=== PATIENT | male | born 1940 | race Caucasian/White ===

== ENCOUNTER 2016-11-23 14:20 | Inpatient (IN) | payer OTHER, MEDICARE ==
[~2016-11-23] VITALS: Ht 170.2 cm; Wt 104.9 kg
[2016-11-23 15:01] LABS: HEMATOCRIT 37.4 % (38.0-50.0); MCH 24.9 PG (29.0-34.0); MCHC 28.6 G/DL (30.0-36.0); MCV 87.2 FL (86-99); MEAN PLAT.VOLUME 10.2 uM^3 (9.0-12.4); NRBC (%) 0.3 /100 WBC (0-0); PLATELET COUNT 261 K/uL (156-360); RBC DIS.WIDTH-CV 20.8 % (11.8-14.6); RBC DIS.WIDTH-SD 63.7 % (39-53); RED BLOOD COUNT 4.29 M/uL (4.00-5.50); WHITE BLOOD COUNT 9.3 K/uL (4.1-10.2)
[2016-11-23 15:07] LABS: INTER. NORMALIZED RATIO 1.2; PROTHROMBIN TIME 12.8 SEC (10.2-12.9)
[2016-11-23 15:10] LABS: CHLORIDE 100 mEq/L (99-109); SODIUM 132 mEq/L (136-147)
[2016-11-23 15:11] LABS: EOSINOPHIL (%) 0.9 % (0-5); EOSINOPHIL COUNT 0.1 K/uL (0-0.3); IMMATURE GRANULOCYTE (%) 0.9 % (0.0-0.7); IMMATURE GRANULOCYTE COUNT 0.1 K/uL; INSTRUMENT ABS NEUTROPHIL CT 7.4 K/uL; LYMPHOCYTE COUNT 0.8 K/uL (1.0-2.8); MONOCYTE COUNT 0.8 K/uL (0-0.8); NEUTROPHIL (%) 80.1 % (45-76); NEUTROPHIL COUNT 7.4 K/uL (1.8-6.4)
[2016-11-23 15:13] LABS: GLUCOSE 123 mg/dL (70-99)
[2016-11-23 15:14] LABS: ANION GAP 9 MEQ/L (2-14)
[2016-11-23 15:15] LABS: TOTAL BILIRUBIN 0.3 mg/dL (0.0-1.0)
[2016-11-23 15:16] LABS: ALKALINE PHOSPHATASE 119 IU/L (3-129)
[2016-11-23 15:17] LABS: GFR ESTIMATE (CALCULATED) 11 mL/min/
[2016-11-23 15:18] LABS: DIRECT BILIRUBIN 0.2 mg/dL (0.0-0.3)
[2016-11-23 15:22] LABS: TROP-I INTERPRETATION NEGATIVE; TROPONIN-I 0.26 ng/mL (0.0-0.30)
[2016-11-23 15:24] LABS: POTASSIUM 8.5 mEq/L (3.7-5.4)
[2016-11-23 15:25] LABS: UREA NITROGEN (BUN) 106 mg/dL (9-23)
[2016-11-23 17:09] LABS: ADD MIUA? YES; BILIRUBIN NEGATIVE; BLOOD NEGATIVE; COLOR AMBER ((YELLOW)); GLUCOSE (STRIP) NEGATIVE; KETONES NEGATIVE; LEUKOCYTES NEGATIVE; NITRITE NEGATIVE; PROTEIN (STRIP) 100; SPECIFIC GRAVITY 1.015 (1.000-1.030); UROBILINOGEN 0.2 MG/DL (0.2-1.0)
[2016-11-23 17:16] LABS: BACTERIA RARE /HPF; EPITHELIAL CELLS RARE /HPF; MUCUS TRACE /LPF; RED BLOOD CELLS NONE SEEN /HPF (0-5); UCUL ADDED? NO; WHITE BLOOD CELLS 0-5 /HPF (0-5)
[2016-11-23 18:36] LABS: LIPASE 17 U/L (1.0-51.0)
[2016-11-23 18:39] LABS: UR CREATININE CONCENTRATION 203.7 MG/DL
[2016-11-23 21:15] VITALS: BP 138/69
[2016-11-23 21:25] LABS: BASE EXCESS -1.8 mEq/L (-3 to +3); BICARBONATE 25.4 mEq/L (22-26); CARBOXY HGB 1.9 % (0-5); COMMENTS - BLOOD GASES C+; DEVICE VENT; FI02 100 %; MECHANICAL RATE 16 resp/min; METHEMOGLOBIN 1.5 % (0-1.5); MODE A/C; PCO2 54 mm Hg (35-45); PO2 309 mm Hg (80-100); SITE RR; TOTAL RESP RATE 16 resp/min; pH 7.28 (7.35-7.45)
[2016-11-23 21:26] LABS: PEEP 5 CM/H20; TIDAL VOLUME 550 ML
[2016-11-23 21:30] VITALS: BP 145/82
[2016-11-23 21:59] LABS: EOSINOPHIL (%) 0.5 % (0-5); HEMATOCRIT 33.6 % (38.0-50.0); IMMATURE GRANULOCYTE (%) 2.2 % (0.0-0.7); IMMATURE GRANULOCYTE COUNT 0.2 K/uL; INSTRUMENT ABS NEUTROPHIL CT 6.1 K/uL; LYMPHOCYTE COUNT 0.5 K/uL (1.0-2.8); MCH 25.9 PG (29.0-34.0); MCHC 29.2 G/DL (30.0-36.0); MCV 88.9 FL (86-99); MEAN PLAT.VOLUME 10.9 uM^3 (9.0-12.4); MONOCYTE (%) 10.8 % (3-12); MONOCYTE COUNT 0.8 K/uL (0-0.8); NEUTROPHIL (%) 79.8 % (45-76); NEUTROPHIL COUNT 6.1 K/uL (1.8-6.4); NRBC (%) 0.7 /100 WBC (0-0); PLATELET COUNT 217 K/uL (156-360); RBC DIS.WIDTH-CV 20.6 % (11.8-14.6); RBC DIS.WIDTH-SD 65.6 % (39-53); RED BLOOD COUNT 3.78 M/uL (4.00-5.50); WHITE BLOOD COUNT 7.6 K/uL (4.1-10.2)
[2016-11-23 22:00] VITALS: BP 113/79
[2016-11-23 22:15] LABS: TROP-I INTERPRETATION NEGATIVE; TROPONIN-I 0.24 ng/mL (0.0-0.30)
[2016-11-23 22:17] LABS: ALKALINE PHOSPHATASE 91 IU/L (3-129); ANION GAP 9 MEQ/L (2-14); CHLORIDE 102 MEQ/L (99-109); GFR ESTIMATE (CALCULATED) 18 mL/min/; GLUCOSE 71 mg/dL (70-99); MAGNESIUM 3.2 mg/dl (1.3-2.7); SAMPLE HEMOLYSIS CHECK 0; SAMPLE ICTERIC CHECK 0; SAMPLE LIPEMIA CHECK 0; SODIUM 137 MEQ/L (136-147); TOTAL BILIRUBIN 0.3 MG/DL (0.0-1.0); TRIGLYCERIDES 76 MG/DL (Normal: <150); UREA NITROGEN (BUN) 70 mg/dL (9-23)
[2016-11-23 22:18] LABS: POTASSIUM 6.1 MEQ/L (3.7-5.4)
[2016-11-23 22:30] VITALS: BP 125/98
[2016-11-23 23:00] VITALS: BP 118/60
[2016-11-23 23:18] LABS: METH RESISTANT S AUREUS PCR NEGATIVE (NEGATIVE); PROBE CHECK PASS; SPECIMEN PROCESSING CONTROL PASS
[2016-11-24] VITALS (24 sets, daily range): BP systolic 0–138; BP diastolic 0–75
[2016-11-24 03:02] LABS: CREATINE KINASE 104 IU/L (1-294)
[2016-11-24 05:37] LABS: HEMATOCRIT 31.4 % (38.0-50.0); MCH 25.3 PG (29.0-34.0); MCHC 29.3 G/DL (30.0-36.0); MCV 86.5 FL (86-99); MEAN PLAT.VOLUME 10.5 uM^3 (9.0-12.4); PLATELET COUNT 208 K/uL (156-360); RBC DIS.WIDTH-CV 20.5 % (11.8-14.6); RBC DIS.WIDTH-SD 63.5 % (39-53); RED BLOOD COUNT 3.63 M/uL (4.00-5.50)
[2016-11-24 06:20] LABS: ANION GAP 10 MEQ/L (2-14); CHLORIDE 102 MEQ/L (99-109); CREATINE KINASE 91 IU/L (1-294); GFR ESTIMATE (CALCULATED) 16 mL/min/; GLUCOSE 48 mg/dL (70-99); IRON 18 MCG/DL (35-150); SAMPLE HEMOLYSIS CHECK 0; SAMPLE ICTERIC CHECK 0; SAMPLE LIPEMIA CHECK 0; SODIUM 137 MEQ/L (136-147); UREA NITROGEN (BUN) 72 mg/dL (9-23)
[2016-11-24 06:22] LABS: POTASSIUM 6.3 MEQ/L (3.7-5.4)
[2016-11-24 07:16] LABS: Estimated Average Glucose 137 mg/dL (70-123); HEMOGLOBIN A1c (GLYCOHEMOGLOB) 6.4 % HGB (Below 5.7)
[2016-11-24 07:32] LABS: POINT-OF-CARE METER ID UU14162636
[2016-11-24 07:41] LABS: INTACT PARATHYROID HORMONE 81 pg/mL (10-69)
[2016-11-24 12:16] LABS: POINT-OF-CARE METER ID UU14162636
[2016-11-24 12:43] LABS: AHBS INDEX 0; HBSG INDEX 0.23; HEPATITIS B SURFACE ANTIBODY Nonreactive
[2016-11-24 16:30] LABS: IFE GEL NO. CAPI
[2016-11-24 18:04] LABS: POINT-OF-CARE METER ID UU14162636
[2016-11-25] VITALS (12 sets, daily range): BP systolic 114–143; BP diastolic 56–79
[2016-11-25 00:35] LABS: POINT-OF-CARE METER ID UU14174217
[2016-11-25 05:36] LABS: POINT-OF-CARE METER ID UU14162636
[2016-11-25 05:44] LABS: HEMATOCRIT 31.1 % (38.0-50.0); MCH 25.1 PG (29.0-34.0); MCHC 29.3 G/DL (30.0-36.0); MCV 85.7 FL (86-99); MEAN PLAT.VOLUME 12.1 uM^3 (9.0-12.4); PLATELET COUNT 197 K/uL (156-360); RBC DIS.WIDTH-CV 21.2 % (11.8-14.6); RBC DIS.WIDTH-SD 65.3 % (39-53); RED BLOOD COUNT 3.63 M/uL (4.00-5.50); WHITE BLOOD COUNT 8.3 K/uL (4.1-10.2)
[2016-11-25 06:51] LABS: ANION GAP 9 MEQ/L (2-14); CHLORIDE 104 MEQ/L (99-109); POTASSIUM 5.9 MEQ/L (3.7-5.4); SAMPLE HEMOLYSIS CHECK 0; SAMPLE ICTERIC CHECK 0; SAMPLE LIPEMIA CHECK 0; SODIUM 138 MEQ/L (136-147); UREA NITROGEN (BUN) 49 mg/dL (9-23)
[2016-11-25 06:52] LABS: GFR ESTIMATE (CALCULATED) 23 mL/min/; GLUCOSE 81 mg/dL (70-99); MAGNESIUM 2.6 mg/dl (1.3-2.7)
[2016-11-25] MEDS ORDERED: ENTRESTO 24 MG1 EACH PO (11:47)
[2016-11-25] MEDS ORDERED: LASIX80 MG PO (11:48)
[2016-11-25] MEDS ORDERED: GLUCOTROL5 MG PO (11:48)
[2016-11-25] MEDS ORDERED: ALLOPURINOL100 MG PO (11:48)
[2016-11-25] MEDS ORDERED: METFORMIN HCL850 MG PO (11:49)
[2016-11-25] MEDS ORDERED: LYRICA50 MG PO (11:49)
[2016-11-25] MEDS ORDERED: LOPRESSOR25 MG PO (11:49)
[2016-11-25] MEDS ORDERED: OXAYDO5 MG PO (11:50)
[2016-11-25] MEDS ORDERED: EXCEDRIN EXTRA1 EACH PO (11:51)
[2016-11-25] MEDS ORDERED: OMEPRAZOLE20 MG PO (11:51)
[2016-11-26] VITALS (12 sets, daily range): BP systolic 87–153; BP diastolic 41–77
[2016-11-26 08:43] LABS: POINT-OF-CARE METER ID UU13113781; POINT-OF-CARE USER ID NUTSLF44
[2016-11-26 08:47] LABS: MCH 25.2 PG (29.0-34.0); MCHC 28.8 G/DL (30.0-36.0); MCV 87.5 FL (86-99); NRBC (%) 0.2 /100 WBC (0-0); PLATELET COUNT 182 K/uL (156-360); RBC DIS.WIDTH-CV 21.2 % (11.8-14.6); RBC DIS.WIDTH-SD 65.4 % (39-53); RED BLOOD COUNT 3.77 M/uL (4.00-5.50); WHITE BLOOD COUNT 8.3 K/uL (4.1-10.2)
[2016-11-26 08:49] LABS: MEAN PLAT.VOLUME 9.9 uM^3 (9.0-12.4)
[2016-11-26 09:12] LABS: ANION GAP 10 MEQ/L (2-14); CHLORIDE 103 MEQ/L (99-109); GFR ESTIMATE (CALCULATED) 25 mL/min/; GLUCOSE 130 mg/dL (70-99); MAGNESIUM 2.8 mg/dl (1.3-2.7); POTASSIUM 5.9 MEQ/L (3.7-5.4); SAMPLE HEMOLYSIS CHECK 0; SAMPLE ICTERIC CHECK 0; SAMPLE LIPEMIA CHECK 0; SODIUM 138 MEQ/L (136-147); UREA NITROGEN (BUN) 50 mg/dL (9-23)
[2016-11-26 12:03] LABS: POINT-OF-CARE USER ID NUTSLF44
[2016-11-26 16:00] LABS: BASE EXCESS 0.5 mEq/L (-3 to +3); CARBOXY HGB 3.3 % (0-5); METHEMOGLOBIN 2.3 % (0-1.5)
[2016-11-26 16:01] LABS: BICARBONATE 30.7 mEq/L (22-26); COMMENTS - BLOOD GASES C+; DEVICE VENTI; FI02 50 %; O2 FLOW 15 L/MIN; PCO2 88 mm Hg (35-45); PO2 64 mm Hg (80-100); SITE RB; pH 7.15 (7.35-7.45)
[2016-11-26 19:11] LABS: ANION GAP 11 MEQ/L (2-14); CHLORIDE 104 MEQ/L (99-109); GFR ESTIMATE (CALCULATED) 22 mL/min/; GLUCOSE 149 mg/dL (70-99); SAMPLE HEMOLYSIS CHECK 0; SAMPLE ICTERIC CHECK 0; SAMPLE LIPEMIA CHECK 0; SODIUM 137 MEQ/L (136-147); TRIGLYCERIDES 103 MG/DL (Normal: <150); UREA NITROGEN (BUN) 57 mg/dL (9-23)
[2016-11-26 19:12] LABS: POTASSIUM 6.3 MEQ/L (3.7-5.4)
[2016-11-26 19:14] LABS: TROP-I INTERPRETATION NEGATIVE; TROPONIN-I 0.21 ng/mL (0.0-0.30)
[2016-11-26 19:25] LABS: BASE EXCESS 1.3 mEq/L (-3 to +3); BICARBONATE 27.5 mEq/L (22-26); CARBOXY HGB 1.8 % (0-5); METHEMOGLOBIN 1.6 % (0-1.5)
[2016-11-26 19:26] LABS: COMMENTS - BLOOD GASES A+C+; DEVICE VENT; FI02 100 %; MECHANICAL RATE 20 resp/min; MODE ACVC; PCO2 51 mm Hg (35-45); PEEP 5 CM/H20; PO2 264 mm Hg (80-100); SITE LR; TIDAL VOLUME 550 ML; TOTAL RESP RATE 20 resp/min; pH 7.34 (7.35-7.45)
[2016-11-26 22:08] LABS: ANION GAP 9 MEQ/L (2-14); CHLORIDE 106 MEQ/L (99-109); GFR ESTIMATE (CALCULATED) 22 mL/min/; GLUCOSE 131 mg/dL (70-99); POTASSIUM 6.1 MEQ/L (3.7-5.4); SAMPLE HEMOLYSIS CHECK 0; SAMPLE ICTERIC CHECK 0; SAMPLE LIPEMIA CHECK 0; SODIUM 139 MEQ/L (136-147); UREA NITROGEN (BUN) 58 mg/dL (9-23)
[2016-11-27] VITALS (19 sets, daily range): BP systolic 98–142; BP diastolic 38–90
[2016-11-27 01:22] LABS: POINT-OF-CARE METER ID UU14174217
[2016-11-27 05:11] LABS: HEMATOCRIT 28.3 % (38.0-50.0); MCH 25.1 PG (29.0-34.0); NRBC (%) 0.4 /100 WBC (0-0); PLATELET COUNT 165 K/uL (156-360); RBC DIS.WIDTH-SD 63.2 % (39-53); RED BLOOD COUNT 3.39 M/uL (4.00-5.50); WHITE BLOOD COUNT 7.2 K/uL (4.1-10.2)
[2016-11-27 05:12] LABS: MCV 83.5 FL (86-99); MEAN PLAT.VOLUME 12.1 uM^3 (9.0-12.4)
[2016-11-27 05:34] LABS: ANION GAP 13 MEQ/L (2-14); CHLORIDE 107 MEQ/L (99-109); MAGNESIUM 2.7 mg/dl (1.3-2.7); POTASSIUM 5.6 MEQ/L (3.7-5.4); SAMPLE HEMOLYSIS CHECK 1; SAMPLE ICTERIC CHECK 0; SAMPLE LIPEMIA CHECK 0; SODIUM 141 MEQ/L (136-147)
[2016-11-27 05:42] LABS: POINT-OF-CARE METER ID UU14174217
[2016-11-27 05:42] LABS: GFR ESTIMATE (CALCULATED) 21 mL/min/; UREA NITROGEN (BUN) 57 mg/dL (9-23)
[2016-11-27 05:43] LABS: GLUCOSE 77 mg/dL (70-99)
[2016-11-27 12:12] LABS: POINT-OF-CARE METER ID UU14174217
[2016-11-28] VITALS (21 sets, daily range): BP systolic 103–144; BP diastolic 51–76
[2016-11-28 05:14] LABS: HEMATOCRIT 27.5 % (38.0-50.0); MCH 26.2 PG (29.0-34.0); MCHC 31.6 G/DL (30.0-36.0); MCV 82.8 FL (86-99); MEAN PLAT.VOLUME 11.3 uM^3 (9.0-12.4); PLATELET COUNT 164 K/uL (156-360); RBC DIS.WIDTH-CV 21.9 % (11.8-14.6); RBC DIS.WIDTH-SD 63.7 % (39-53); RED BLOOD COUNT 3.32 M/uL (4.00-5.50); WHITE BLOOD COUNT 7.3 K/uL (4.1-10.2)
[2016-11-28 05:25] LABS: ANION GAP 11 MEQ/L (2-14); CHLORIDE 107 MEQ/L (99-109); GFR ESTIMATE (CALCULATED) 19 mL/min/; GLUCOSE 123 mg/dL (70-99); MAGNESIUM 2.6 mg/dl (1.3-2.7); SAMPLE HEMOLYSIS CHECK 0; SAMPLE ICTERIC CHECK 0; SAMPLE LIPEMIA CHECK 0; SODIUM 141 MEQ/L (136-147); UREA NITROGEN (BUN) 60 mg/dL (9-23)
[2016-11-28 11:29] LABS: POINT-OF-CARE METER ID UU14208751
[2016-11-28 17:47] LABS: POINT-OF-CARE METER ID UU14208751
[2016-11-29] VITALS (22 sets, daily range): BP systolic 80–110; BP diastolic 49–69
[2016-11-29 05:49] LABS: HEMATOCRIT 28.3 % (38.0-50.0); MCHC 31.4 G/DL (30.0-36.0); MCV 82.7 FL (86-99); MEAN PLAT.VOLUME 11.2 uM^3 (9.0-12.4); PLATELET COUNT 157 K/uL (156-360); RBC DIS.WIDTH-SD 63.5 % (39-53); RED BLOOD COUNT 3.42 M/uL (4.00-5.50); WHITE BLOOD COUNT 7.6 K/uL (4.1-10.2)
[2016-11-29 06:26] LABS: ANION GAP 9 MEQ/L (2-14); CHLORIDE 107 MEQ/L (99-109); GFR ESTIMATE (CALCULATED) 22 mL/min/; GLUCOSE 159 mg/dL (70-99); MAGNESIUM 2.6 mg/dl (1.3-2.7); POTASSIUM 4.6 MEQ/L (3.7-5.4); SAMPLE HEMOLYSIS CHECK 0; SAMPLE ICTERIC CHECK 0; SAMPLE LIPEMIA CHECK 0; SODIUM 144 MEQ/L (136-147); UREA NITROGEN (BUN) 60 mg/dL (9-23)
[2016-11-29 06:51] LABS: BASE EXCESS 5.4 mEq/L (-3 to +3); BICARBONATE 29.9 mEq/L (22-26); METHEMOGLOBIN 1.4 % (0-1.5); PCO2 43 mm Hg (35-45); PO2 63 mm Hg (80-100); SITE LR; pH 7.45 (7.35-7.45)
[2016-11-29 06:52] LABS: COMMENTS - BLOOD GASES A+C+; DEVICE 840; FI02 50 %; MODE SPONT; PEEP 5 CM/H20; PRES. SUPPORT 12 CM/H2O; TOTAL RESP RATE 21 resp/min
[2016-11-29 12:06] LABS: POINT-OF-CARE METER ID UU13113731
[2016-11-29 17:28] LABS: POINT-OF-CARE METER ID UU14174217
[2016-11-29 17:28] LABS: BASE EXCESS 3.3 mEq/L (-3 to +3); BICARBONATE 32.8 mEq/L (22-26); CARBOXY HGB 2.6 % (0-5); METHEMOGLOBIN 1.6 % (0-1.5); PCO2 82 mm Hg (35-45); PO2 45 mm Hg (80-100); pH 7.21 (7.35-7.45)
[2016-11-29 17:29] LABS: COMMENTS - BLOOD GASES A+C+; DEVICE NC; MECHANICAL RATE 18 resp/min; O2 FLOW 4 L/MIN; SITE LR
[2016-11-29 23:37] LABS: BASE EXCESS 2.1 mEq/L (-3 to +3); BICARBONATE 31.1 mEq/L (22-26); CARBOXY HGB 2.1 % (0-5); METHEMOGLOBIN 1.2 % (0-1.5); PCO2 76 mm Hg (35-45); PO2 88 mm Hg (80-100)
[2016-11-29 23:38] LABS: COMMENTS - BLOOD GASES C+A+; DEVICE HFNC; FI02 90 %; O2 FLOW 50 L/MIN; SITE LR; pH 7.22 (7.35-7.45)
[2016-11-30] VITALS (20 sets, daily range): BP systolic 85–112; BP diastolic 47–67
[2016-11-30 01:07] LABS: POINT-OF-CARE METER ID UU13113731
[2016-11-30 05:29] LABS: BASE EXCESS 1.9 mEq/L (-3 to +3); BICARBONATE 30.3 mEq/L (22-26); CARBOXY HGB 1.9 % (0-5); COMMENTS - BLOOD GASES C+A+; DEVICE BIPAP; METHEMOGLOBIN 1.6 % (0-1.5); MODE SPONT; O2 FLOW 20 L/MIN; PCO2 69 mm Hg (35-45); PO2 123 mm Hg (80-100); SITE LR; TOTAL RESP RATE 18 resp/min; pH 7.25 (7.35-7.45)
[2016-11-30 05:30] LABS: PEEP 5 CM/H20; PRES. SUPPORT 15 CM/H2O
[2016-11-30 07:03] LABS: EOSINOPHIL (%) 3.6 % (0-5); EOSINOPHIL COUNT 0.3 K/uL (0-0.3); HEMATOCRIT 32.4 % (38.0-50.0); IMMATURE GRANULOCYTE (%) 0.5 % (0.0-0.7); IMMATURE GRANULOCYTE COUNT 0.1 K/uL; INSTRUMENT ABS NEUTROPHIL CT 7.2 K/uL; LYMPHOCYTE COUNT 0.6 K/uL (1.0-2.8); MCH 24.9 PG (29.0-34.0); MCHC 27.8 G/DL (30.0-36.0); MCV 89.8 FL (86-99); MEAN PLAT.VOLUME 10.9 uM^3 (9.0-12.4); MONOCYTE (%) 13.3 % (3-12); MONOCYTE COUNT 1.3 K/uL (0-0.8); NEUTROPHIL COUNT 7.2 K/uL (1.8-6.4); PLATELET COUNT 159 K/uL (156-360); RBC DIS.WIDTH-CV 21.8 % (11.8-14.6); RBC DIS.WIDTH-SD 71.1 % (39-53); RED BLOOD COUNT 3.61 M/uL (4.00-5.50); WHITE BLOOD COUNT 9.5 K/uL (4.1-10.2)
[2016-11-30 07:21] LABS: ANION GAP 8 MEQ/L (2-14); CHLORIDE 107 MEQ/L (99-109); GFR ESTIMATE (CALCULATED) 19 mL/min/; MAGNESIUM 2.8 mg/dl (1.3-2.7); SAMPLE HEMOLYSIS CHECK 0; SAMPLE ICTERIC CHECK 0; SAMPLE LIPEMIA CHECK 0; SODIUM 144 MEQ/L (136-147); UREA NITROGEN (BUN) 65 mg/dL (9-23)
[2016-11-30 07:27] LABS: GLUCOSE 115 mg/dL (70-99); POTASSIUM 5.6 MEQ/L (3.7-5.4)
[2016-11-30 12:16] LABS: POINT-OF-CARE METER ID UU14162636
[2016-11-30 18:24] LABS: POINT-OF-CARE METER ID UU14162636
[2016-11-30 23:40] LABS: POINT-OF-CARE METER ID UU14162636
[2016-12-01] VITALS (24 sets, daily range): BP systolic 87–127; BP diastolic 41–63
[2016-12-01 05:15] LABS: POINT-OF-CARE METER ID UU13113748
[2016-12-01 06:19] LABS: ANION GAP 12 MEQ/L (2-14); CHLORIDE 105 MEQ/L (99-109); GFR ESTIMATE (CALCULATED) 15 mL/min/; GLUCOSE 125 mg/dL (70-99); POTASSIUM 6.3 MEQ/L (3.7-5.4); SAMPLE HEMOLYSIS CHECK 0; SAMPLE ICTERIC CHECK 0; SAMPLE LIPEMIA CHECK 0; SODIUM 144 MEQ/L (136-147); UREA NITROGEN (BUN) 76 mg/dL (9-23)
[2016-12-01 06:35] LABS: HEMATOCRIT 34.8 % (38.0-50.0); MCH 25.2 PG (29.0-34.0); MCHC 27.3 G/DL (30.0-36.0); MCV 92.3 FL (86-99); MEAN PLAT.VOLUME 11.6 uM^3 (9.0-12.4); PLATELET COUNT 177 K/uL (156-360); RBC DIS.WIDTH-CV 21.2 % (11.8-14.6); RBC DIS.WIDTH-SD 71.5 % (39-53); RED BLOOD COUNT 3.77 M/uL (4.00-5.50); WHITE BLOOD COUNT 9.5 K/uL (4.1-10.2)
[2016-12-01 18:25] LABS: POINT-OF-CARE METER ID UU13113731
[2016-12-02] VITALS (14 sets, daily range): BP systolic 88–110; BP diastolic 36–61
[2016-12-02 00:06] LABS: POINT-OF-CARE METER ID UU13113731
[2016-12-02 05:32] LABS: BASOPHIL COUNT 0.1 K/uL (0-0.1); EOSINOPHIL (%) 3.2 % (0-5); EOSINOPHIL COUNT 0.3 K/uL (0-0.3); HEMATOCRIT 29.9 % (38.0-50.0); IMMATURE GRANULOCYTE (%) 0.7 % (0.0-0.7); IMMATURE GRANULOCYTE COUNT 0.1 K/uL; INSTRUMENT ABS NEUTROPHIL CT 6.5 K/uL; LYMPHOCYTE COUNT 0.5 K/uL (1.0-2.8); MCH 26.2 PG (29.0-34.0); MCHC 28.8 G/DL (30.0-36.0); MCV 91.2 FL (86-99); MEAN PLAT.VOLUME 12.7 uM^3 (9.0-12.4); MONOCYTE (%) 11.7 % (3-12); NEUTROPHIL (%) 77.9 % (45-76); NEUTROPHIL COUNT 6.5 K/uL (1.8-6.4); PLATELET COUNT 164 K/uL (156-360); RBC DIS.WIDTH-CV 20.7 % (11.8-14.6); RBC DIS.WIDTH-SD 68.4 % (39-53); RED BLOOD COUNT 3.28 M/uL (4.00-5.50); WHITE BLOOD COUNT 8.4 K/uL (4.1-10.2)
[2016-12-02 05:51] LABS: POINT-OF-CARE METER ID UU13113748
[2016-12-02 05:56] LABS: ANION GAP 11 MEQ/L (2-14); CHLORIDE 104 MEQ/L (99-109); GFR ESTIMATE (CALCULATED) 16 mL/min/; GLUCOSE 113 mg/dL (70-99); POTASSIUM 5.7 MEQ/L (3.7-5.4); SAMPLE HEMOLYSIS CHECK 0; SAMPLE ICTERIC CHECK 0; SAMPLE LIPEMIA CHECK 0; SODIUM 140 MEQ/L (136-147); UREA NITROGEN (BUN) 59 mg/dL (9-23)
[2016-12-02 07:49] LABS: MAGNESIUM 2.6 mg/dl (1.3-2.7)
[2016-12-02 13:02] LABS: POINT-OF-CARE METER ID UU13113748
[2016-12-02 17:48] LABS: ANION GAP 10 MEQ/L (2-14); CHLORIDE 102 MEQ/L (99-109); GFR ESTIMATE (CALCULATED) 13 mL/min/; GLUCOSE 147 mg/dL (70-99); MAGNESIUM 2.8 mg/dl (1.3-2.7); POTASSIUM 5.7 MEQ/L (3.7-5.4); SAMPLE HEMOLYSIS CHECK 0; SAMPLE ICTERIC CHECK 0; SAMPLE LIPEMIA CHECK 0; SODIUM 140 MEQ/L (136-147); UREA NITROGEN (BUN) 68 mg/dL (9-23)
[2016-12-02 18:05] LABS: POINT-OF-CARE METER ID UU13113748; POINT-OF-CARE USER ID 606021424
[2016-12-02 19:41] LABS: INTER. NORMALIZED RATIO 1.1; PROTHROMBIN TIME 12.2 SEC (10.2-12.9)
[2016-12-02 19:57] LABS: ANION GAP 10 MEQ/L (2-14); CHLORIDE 103 MEQ/L (99-109); GFR ESTIMATE (CALCULATED) 13 mL/min/; GLUCOSE 147 mg/dL (70-99); MAGNESIUM 2.7 mg/dl (1.3-2.7); SAMPLE HEMOLYSIS CHECK 0; SAMPLE ICTERIC CHECK 0; SAMPLE LIPEMIA CHECK 0; SODIUM 141 MEQ/L (136-147); UREA NITROGEN (BUN) 69 mg/dL (9-23)
[2016-12-03] VITALS (24 sets, daily range): BP systolic 79–140; BP diastolic 40–75
[2016-12-03 00:26] LABS: POINT-OF-CARE METER ID UU14174217
[2016-12-03 00:57] LABS: CHLORIDE 105 mEq/L (99-109); SODIUM 138 mEq/L (136-147)
[2016-12-03 00:58] LABS: MAGNESIUM 3.2 mg/dL (1.3-2.7)
[2016-12-03 01:00] LABS: GLUCOSE 144 mg/dL (70-99)
[2016-12-03 01:01] LABS: ANION GAP 15 MEQ/L (2-14)
[2016-12-03 01:03] LABS: GFR ESTIMATE (CALCULATED) 13 mL/min/
[2016-12-03 01:04] LABS: UREA NITROGEN (BUN) 66 mg/dL (9-23)
[2016-12-03 01:06] LABS: POTASSIUM 6.7 mEq/L (3.7-5.4)
[2016-12-03 02:57] LABS: CHLORIDE 106 mEq/L (99-109); SODIUM 139 mEq/L (136-147)
[2016-12-03 02:59] LABS: GLUCOSE 162 mg/dL (70-99)
[2016-12-03 03:00] LABS: ANION GAP 13 MEQ/L (2-14)
[2016-12-03 03:03] LABS: GFR ESTIMATE (CALCULATED) 14 mL/min/
[2016-12-03 03:04] LABS: UREA NITROGEN (BUN) 58 mg/dL (9-23)
[2016-12-03 03:12] LABS: POTASSIUM 5.3 mEq/L (3.7-5.4)
[2016-12-03 05:09] LABS: CHLORIDE 103 mEq/L (99-109); POTASSIUM 4.6 mEq/L (3.7-5.4); SODIUM 141 mEq/L (136-147)
[2016-12-03 05:11] LABS: CHLORIDE 104 mEq/L (99-109); POTASSIUM 4.6 mEq/L (3.7-5.4); SODIUM 142 mEq/L (136-147)
[2016-12-03 05:12] LABS: GLUCOSE 128 mg/dL (70-99); MAGNESIUM 2.5 mg/dL (1.3-2.7)
[2016-12-03 05:13] LABS: ANION GAP 14 MEQ/L (2-14); GLUCOSE 132 mg/dL (70-99)
[2016-12-03 05:14] LABS: ANION GAP 13 MEQ/L (2-14)
[2016-12-03 05:15] LABS: GFR ESTIMATE (CALCULATED) 16 mL/min/; TOTAL BILIRUBIN 0.7 mg/dL (0.0-1.0)
[2016-12-03 05:16] LABS: UREA NITROGEN (BUN) 55 mg/dL (9-23)
[2016-12-03 05:17] LABS: ALKALINE PHOSPHATASE 88 IU/L (3-129); GFR ESTIMATE (CALCULATED) 15 mL/min/
[2016-12-03 05:18] LABS: UREA NITROGEN (BUN) 51 mg/dL (9-23)
[2016-12-03 06:21] LABS: BASOPHIL COUNT 0.1 K/uL (0-0.1); EOSINOPHIL (%) 2.7 % (0-5); EOSINOPHIL COUNT 0.2 K/uL (0-0.3); HEMATOCRIT 33.5 % (38.0-50.0); IMMATURE GRANULOCYTE (%) 0.9 % (0.0-0.7); IMMATURE GRANULOCYTE COUNT 0.1 K/uL; LYMPHOCYTE COUNT 0.4 K/uL (1.0-2.8); MCH 25.5 PG (29.0-34.0); MCHC 28.4 G/DL (30.0-36.0); MCV 90.1 FL (86-99); MEAN PLAT.VOLUME 12.2 uM^3 (9.0-12.4); MONOCYTE (%) 15.2 % (3-12); MONOCYTE COUNT 1.2 K/uL (0-0.8); NEUTROPHIL (%) 75.4 % (45-76); PLATELET COUNT 202 K/uL (156-360); RBC DIS.WIDTH-CV 20.5 % (11.8-14.6); RBC DIS.WIDTH-SD 67.4 % (39-53); RED BLOOD COUNT 3.72 M/uL (4.00-5.50); WHITE BLOOD COUNT 7.9 K/uL (4.1-10.2)
[2016-12-03 06:52] LABS: ANION GAP 12 MEQ/L (2-14); CHLORIDE 105 MEQ/L (99-109); GLUCOSE 128 mg/dL (70-99); POTASSIUM 4.6 MEQ/L (3.7-5.4); SAMPLE HEMOLYSIS CHECK 0; SAMPLE ICTERIC CHECK 0; SAMPLE LIPEMIA CHECK 0; SODIUM 142 MEQ/L (136-147); UREA NITROGEN (BUN) 51 mg/dL (9-23)
[2016-12-03 07:01] LABS: GFR ESTIMATE (CALCULATED) 19 mL/min/
[2016-12-03 11:22] LABS: ANION GAP 8 MEQ/L (2-14); CHLORIDE 103 MEQ/L (99-109); GFR ESTIMATE (CALCULATED) 18 mL/min/; GLUCOSE 165 mg/dL (70-99); MAGNESIUM 2.3 mg/dl (1.3-2.7); POTASSIUM 4.3 MEQ/L (3.7-5.4); SAMPLE HEMOLYSIS CHECK 0; SAMPLE ICTERIC CHECK 0; SAMPLE LIPEMIA CHECK 0; SODIUM 139 MEQ/L (136-147); UREA NITROGEN (BUN) 49 mg/dL (9-23)
[2016-12-03 12:18] LABS: POINT-OF-CARE METER ID UU14208751
[2016-12-03 16:12] LABS: ANION GAP 11 MEQ/L (2-14); CHLORIDE 103 MEQ/L (99-109); GFR ESTIMATE (CALCULATED) 16 mL/min/; GLUCOSE 158 mg/dL (70-99); MAGNESIUM 2.4 mg/dl (1.3-2.7); POTASSIUM 4.4 MEQ/L (3.7-5.4); SAMPLE HEMOLYSIS CHECK 0; SAMPLE ICTERIC CHECK 0; SAMPLE LIPEMIA CHECK 0; SODIUM 140 MEQ/L (136-147); UREA NITROGEN (BUN) 51 mg/dL (9-23)
[2016-12-03 18:04] LABS: POINT-OF-CARE METER ID UU14208751
[2016-12-04] VITALS (25 sets, daily range): BP systolic 0–108; BP diastolic 0–70
[2016-12-04 00:25] LABS: POINT-OF-CARE METER ID UU14208751; POINT-OF-CARE USER ID RADDRS44
[2016-12-04 01:08] LABS: CHLORIDE 106 mEq/L (99-109); POTASSIUM 4.6 mEq/L (3.7-5.4); SODIUM 143 mEq/L (136-147)
[2016-12-04 01:09] LABS: MAGNESIUM 2.4 mg/dL (1.3-2.7)
[2016-12-04 01:12] LABS: ANION GAP 13 MEQ/L (2-14)
[2016-12-04 01:36] LABS: GLUCOSE 128 mg/dL (70-99)
[2016-12-04 01:41] LABS: UREA NITROGEN (BUN) 56 mg/dL (9-23)
[2016-12-04 01:50] LABS: GFR ESTIMATE (CALCULATED) 13 mL/min/
[2016-12-04 06:20] LABS: POINT-OF-CARE METER ID UU14174217; POINT-OF-CARE USER ID RADDRS44
[2016-12-04 08:58] LABS: BASOPHIL COUNT 0.1 K/uL (0-0.1); EOSINOPHIL (%) 4.5 % (0-5); EOSINOPHIL COUNT 0.3 K/uL (0-0.3); HEMATOCRIT 32.3 % (38.0-50.0); IMMATURE GRANULOCYTE (%) 0.8 % (0.0-0.7); IMMATURE GRANULOCYTE COUNT 0.1 K/uL; INSTRUMENT ABS NEUTROPHIL CT 5.1 K/uL; LYMPHOCYTE COUNT 0.6 K/uL (1.0-2.8); MCH 24.9 PG (29.0-34.0); MCHC 27.9 G/DL (30.0-36.0); MCV 89.2 FL (86-99); MEAN PLAT.VOLUME 11.3 uM^3 (9.0-12.4); MONOCYTE (%) 13.5 % (3-12); NEUTROPHIL (%) 72.4 % (45-76); NEUTROPHIL COUNT 5.1 K/uL (1.8-6.4); PLATELET COUNT 196 K/uL (156-360); RBC DIS.WIDTH-CV 20.4 % (11.8-14.6); RBC DIS.WIDTH-SD 66.5 % (39-53); RED BLOOD COUNT 3.62 M/uL (4.00-5.50); WHITE BLOOD COUNT 7.1 K/uL (4.1-10.2)
[2016-12-04 09:25] LABS: ANION GAP 10 MEQ/L (2-14); CHLORIDE 104 MEQ/L (99-109); GFR ESTIMATE (CALCULATED) 13 mL/min/; GLUCOSE 105 mg/dL (70-99); MAGNESIUM 2.5 mg/dl (1.3-2.7); POTASSIUM 4.1 MEQ/L (3.7-5.4); SAMPLE HEMOLYSIS CHECK 0; SAMPLE ICTERIC CHECK 0; SAMPLE LIPEMIA CHECK 0; SODIUM 143 MEQ/L (136-147); UREA NITROGEN (BUN) 61 mg/dL (9-23)
[2016-12-04 13:13] LABS: POINT-OF-CARE METER ID UU14174217
[2016-12-04 17:58] LABS: POINT-OF-CARE METER ID UU14174217
[2016-12-05] VITALS (24 sets, daily range): BP systolic 85–116; BP diastolic 48–72
[2016-12-05 00:04] LABS: POINT-OF-CARE METER ID UU14174217; POINT-OF-CARE USER ID RADDRS44
[2016-12-05 03:04] LABS: MCH 24.8 PG (29.0-34.0); MCV 88.5 FL (86-99); MEAN PLAT.VOLUME 11.4 uM^3 (9.0-12.4); PLATELET COUNT 150 K/uL (156-360); RBC DIS.WIDTH-CV 20.2 % (11.8-14.6); RBC DIS.WIDTH-SD 65.1 % (39-53); RED BLOOD COUNT 3.39 M/uL (4.00-5.50); WHITE BLOOD COUNT 6.7 K/uL (4.1-10.2)
[2016-12-05 03:12] LABS: CHLORIDE 103 mEq/L (99-109); POTASSIUM 3.9 mEq/L (3.7-5.4); SODIUM 138 mEq/L (136-147)
[2016-12-05 03:13] LABS: MAGNESIUM 2.2 mg/dL (1.3-2.7)
[2016-12-05 03:14] LABS: GLUCOSE 129 mg/dL (70-99)
[2016-12-05 03:15] LABS: ANION GAP 7 MEQ/L (2-14)
[2016-12-05 03:18] LABS: GFR ESTIMATE (CALCULATED) 14 mL/min/
[2016-12-05 03:19] LABS: UREA NITROGEN (BUN) 50 mg/dL (9-23)
[2016-12-05 11:58] LABS: POINT-OF-CARE METER ID UU14208751
[2016-12-05 17:03] LABS: POINT-OF-CARE METER ID UU14208751
[2016-12-06] VITALS (24 sets, daily range): BP systolic 80–122; BP diastolic 42–68
[2016-12-06 00:59] LABS: POINT-OF-CARE METER ID UU13113731
[2016-12-06 05:57] LABS: EOSINOPHIL (%) 3.1 % (0-5); EOSINOPHIL COUNT 0.2 K/uL (0-0.3); HEMATOCRIT 28.7 % (38.0-50.0); IMMATURE GRANULOCYTE (%) 2.1 % (0.0-0.7); IMMATURE GRANULOCYTE COUNT 0.2 K/uL; INSTRUMENT ABS NEUTROPHIL CT 4.9 K/uL; LYMPHOCYTE COUNT 0.7 K/uL (1.0-2.8); MCH 25.9 PG (29.0-34.0); MCHC 28.9 G/DL (30.0-36.0); MCV 89.7 FL (86-99); MEAN PLAT.VOLUME 12.7 uM^3 (9.0-12.4); MONOCYTE (%) 15.3 % (3-12); MONOCYTE COUNT 1.1 K/uL (0-0.8); NEUTROPHIL (%) 69.5 % (45-76); NEUTROPHIL COUNT 4.9 K/uL (1.8-6.4); PLATELET COUNT 169 K/uL (156-360); RBC DIS.WIDTH-CV 19.9 % (11.8-14.6); RBC DIS.WIDTH-SD 65.7 % (39-53)
[2016-12-06 07:07] LABS: ANION GAP 11 MEQ/L (2-14); CHLORIDE 99 MEQ/L (99-109); GFR ESTIMATE (CALCULATED) 10 mL/min/; GLUCOSE 132 mg/dL (70-99); MAGNESIUM 2.4 mg/dl (1.3-2.7); POTASSIUM 4.6 MEQ/L (3.7-5.4); SAMPLE HEMOLYSIS CHECK 0; SAMPLE ICTERIC CHECK 0; SAMPLE LIPEMIA CHECK 0; SODIUM 138 MEQ/L (136-147); UREA NITROGEN (BUN) 60 mg/dL (9-23)
[2016-12-06 13:18] LABS: POINT-OF-CARE METER ID UU13113731
[2016-12-06 17:45] LABS: POINT-OF-CARE METER ID UU13113731
[2016-12-06 20:55] LABS: ANION GAP 9 MEQ/L (2-14); CHLORIDE 102 MEQ/L (99-109); POTASSIUM 4.8 MEQ/L (3.7-5.4); SAMPLE HEMOLYSIS CHECK 0; SAMPLE ICTERIC CHECK 0; SAMPLE LIPEMIA CHECK 0; SODIUM 137 MEQ/L (136-147)
[2016-12-06 21:20] LABS: GLUCOSE 162 mg/dL (70-99); UREA NITROGEN (BUN) 46 mg/dL (9-23)
[2016-12-06 21:25] LABS: GFR ESTIMATE (CALCULATED) 15 mL/min/
[2016-12-07] VITALS (23 sets, daily range): BP systolic 0–133; BP diastolic 0–71
[2016-12-07 00:21] LABS: POINT-OF-CARE METER ID UU14208751
[2016-12-07 05:06] LABS: BASOPHIL COUNT 0.1 K/uL (0-0.1); EOSINOPHIL (%) 2.2 % (0-5); EOSINOPHIL COUNT 0.2 K/uL (0-0.3); HEMATOCRIT 31.1 % (38.0-50.0); IMMATURE GRANULOCYTE (%) 1.8 % (0.0-0.7); IMMATURE GRANULOCYTE COUNT 0.1 K/uL; INSTRUMENT ABS NEUTROPHIL CT 5.8 K/uL; LYMPHOCYTE COUNT 0.6 K/uL (1.0-2.8); MCH 25.6 PG (29.0-34.0); MCHC 29.3 G/DL (30.0-36.0); MCV 87.6 FL (86-99); MEAN PLAT.VOLUME 11.6 uM^3 (9.0-12.4); MONOCYTE (%) 11.8 % (3-12); MONOCYTE COUNT 0.9 K/uL (0-0.8); NEUTROPHIL (%) 75.5 % (45-76); NEUTROPHIL COUNT 5.8 K/uL (1.8-6.4); NRBC (%) 0.3 /100 WBC (0-0); PLATELET COUNT 183 K/uL (156-360); RBC DIS.WIDTH-CV 19.6 % (11.8-14.6); RBC DIS.WIDTH-SD 62.4 % (39-53); RED BLOOD COUNT 3.55 M/uL (4.00-5.50); WHITE BLOOD COUNT 7.7 K/uL (4.1-10.2)
[2016-12-07 05:37] LABS: CHLORIDE 104 mEq/L (99-109); POTASSIUM 4.5 mEq/L (3.7-5.4); SODIUM 139 mEq/L (136-147)
[2016-12-07 05:39] LABS: GLUCOSE 132 mg/dL (70-99)
[2016-12-07 05:41] LABS: ANION GAP 9 MEQ/L (2-14)
[2016-12-07 05:43] LABS: GFR ESTIMATE (CALCULATED) 18 mL/min/
[2016-12-07 05:44] LABS: UREA NITROGEN (BUN) 36 mg/dL (9-23)
[2016-12-07 12:27] LABS: POINT-OF-CARE METER ID UU14162636
[2016-12-07 13:58] LABS: ANION GAP 8 MEQ/L (2-14); CHLORIDE 102 MEQ/L (99-109); GLUCOSE 144 mg/dL (70-99); POTASSIUM 4.3 MEQ/L (3.7-5.4); SAMPLE HEMOLYSIS CHECK 0; SAMPLE ICTERIC CHECK 0; SAMPLE LIPEMIA CHECK 0; SODIUM 137 MEQ/L (136-147); UREA NITROGEN (BUN) 27 mg/dL (9-23)
[2016-12-07 13:59] LABS: GFR ESTIMATE (CALCULATED) 29 mL/min/
[2016-12-07 17:47] LABS: POINT-OF-CARE METER ID UU14174217
[2016-12-07 20:33] LABS: ANION GAP 8 MEQ/L (2-14); CHLORIDE 103 MEQ/L (99-109); POTASSIUM 4.4 MEQ/L (3.7-5.4); SAMPLE HEMOLYSIS CHECK 0; SAMPLE ICTERIC CHECK 0; SAMPLE LIPEMIA CHECK 0; SODIUM 136 MEQ/L (136-147)
[2016-12-07 20:40] LABS: GFR ESTIMATE (CALCULATED) 31 mL/min/; GLUCOSE 155 mg/dL (70-99); UREA NITROGEN (BUN) 27 mg/dL (9-23)
[2016-12-08] VITALS (24 sets, daily range): BP systolic 83–117; BP diastolic 41–75
[2016-12-08 05:30] LABS: CHLORIDE 104 mEq/L (99-109)
[2016-12-08 05:31] LABS: POTASSIUM 4.2 mEq/L (3.7-5.4); SODIUM 139 mEq/L (136-147)
[2016-12-08 05:32] LABS: GLUCOSE 117 mg/dL (70-99)
[2016-12-08 05:34] LABS: ANION GAP 8 MEQ/L (2-14)
[2016-12-08 05:36] LABS: GFR ESTIMATE (CALCULATED) 37 mL/min/
[2016-12-08 05:37] LABS: UREA NITROGEN (BUN) 22 mg/dL (9-23)
[2016-12-08 05:51] LABS: BASOPHIL COUNT 0.1 K/uL (0-0.1); EOSINOPHIL (%) 2.3 % (0-5); EOSINOPHIL COUNT 0.2 K/uL (0-0.3); HEMATOCRIT 29.3 % (38.0-50.0); IMMATURE GRANULOCYTE (%) 2.6 % (0.0-0.7); IMMATURE GRANULOCYTE COUNT 0.2 K/uL; LYMPHOCYTE COUNT 0.9 K/uL (1.0-2.8); MCH 25.2 PG (29.0-34.0); MCV 86.9 FL (86-99); MONOCYTE (%) 10.1 % (3-12); MONOCYTE COUNT 0.8 K/uL (0-0.8); NEUTROPHIL (%) 73.3 % (45-76); NRBC (%) 0.2 /100 WBC (0-0); PLATELET COUNT 178 K/uL (156-360); RBC DIS.WIDTH-CV 19.8 % (11.8-14.6); RBC DIS.WIDTH-SD 62.5 % (39-53); RED BLOOD COUNT 3.37 M/uL (4.00-5.50); WHITE BLOOD COUNT 8.1 K/uL (4.1-10.2)
[2016-12-08 08:52] LABS: POINT-OF-CARE METER ID UU14174217
[2016-12-08 12:15] LABS: POINT-OF-CARE METER ID UU14174217
[2016-12-08 13:50] LABS: ANION GAP 9 MEQ/L (2-14); CHLORIDE 104 MEQ/L (99-109); GFR ESTIMATE (CALCULATED) 48 mL/min/; GLUCOSE 159 mg/dL (70-99); POTASSIUM 4.4 MEQ/L (3.7-5.4); SAMPLE HEMOLYSIS CHECK 0; SAMPLE ICTERIC CHECK 0; SAMPLE LIPEMIA CHECK 0; SODIUM 138 MEQ/L (136-147); UREA NITROGEN (BUN) 19 mg/dL (9-23)
[2016-12-08 16:36] LABS: POINT-OF-CARE METER ID UU14174217
[2016-12-08 22:17] LABS: POINT-OF-CARE METER ID UU14174217; POINT-OF-CARE USER ID LABHNS84
[2016-12-09] VITALS (25 sets, daily range): BP systolic 0–119; BP diastolic 0–66
[2016-12-09 05:47] LABS: BASOPHIL COUNT 0.1 K/uL (0-0.1); EOSINOPHIL (%) 2.8 % (0-5); EOSINOPHIL COUNT 0.2 K/uL (0-0.3); HEMATOCRIT 26.2 % (38.0-50.0); IMMATURE GRANULOCYTE (%) 2.3 % (0.0-0.7); IMMATURE GRANULOCYTE COUNT 0.2 K/uL; INSTRUMENT ABS NEUTROPHIL CT 6.4 K/uL; LYMPHOCYTE COUNT 0.9 K/uL (1.0-2.8); MCH 25.2 PG (29.0-34.0); MCV 86.8 FL (86-99); MEAN PLAT.VOLUME 11.8 uM^3 (9.0-12.4); MONOCYTE (%) 10.3 % (3-12); MONOCYTE COUNT 0.9 K/uL (0-0.8); NEUTROPHIL (%) 73.9 % (45-76); NEUTROPHIL COUNT 6.4 K/uL (1.8-6.4); NRBC (%) 0.2 /100 WBC (0-0); PLATELET COUNT 188 K/uL (156-360); RBC DIS.WIDTH-CV 20.3 % (11.8-14.6); RBC DIS.WIDTH-SD 63.8 % (39-53); RED BLOOD COUNT 3.02 M/uL (4.00-5.50); WHITE BLOOD COUNT 8.7 K/uL (4.1-10.2)
[2016-12-09 06:13] LABS: BASE EXCESS 3.3 mEq/L (-3 to +3); BICARBONATE 29.7 mEq/L (22-26); CARBOXY HGB 2.3 % (0-5); COMMENTS - BLOOD GASES C+A+; CONTINUOUS POS AIRWAY PRESSURE 5 cm H2O; DEVICE BIPAP; FI02 6 %; METHEMOGLOBIN 1.1 % (0-1.5); O2 FLOW 6 L/MIN; PCO2 55 mm Hg (35-45); PO2 70 mm Hg (80-100); PRES. SUPPORT 15 CM/H2O; SITE RR; TOTAL RESP RATE 16 resp/min; pH 7.34 (7.35-7.45)
[2016-12-09 07:11] LABS: ANION GAP 8 MEQ/L (2-14); CHLORIDE 104 MEQ/L (99-109); GFR ESTIMATE (CALCULATED) 42 mL/min/; MAGNESIUM 2.4 mg/dl (1.3-2.7); POTASSIUM 4.8 MEQ/L (3.7-5.4); SAMPLE HEMOLYSIS CHECK 0; SAMPLE ICTERIC CHECK 0; SAMPLE LIPEMIA CHECK 0; SODIUM 137 MEQ/L (136-147); UREA NITROGEN (BUN) 17 mg/dL (9-23)
[2016-12-09 07:17] LABS: GLUCOSE 107 mg/dL (70-99)
[2016-12-09 12:36] LABS: POINT-OF-CARE METER ID UU14174217
[2016-12-09 17:49] LABS: POINT-OF-CARE METER ID UU14174217
[2016-12-09 21:59] LABS: POINT-OF-CARE METER ID UU13113748; POINT-OF-CARE USER ID LABHNS84
[2016-12-10] VITALS (24 sets, daily range): BP systolic 0–137; BP diastolic 0–71
[2016-12-10 02:40] LABS: CHLORIDE 104 mEq/L (99-109); POTASSIUM 4.9 mEq/L (3.7-5.4); SODIUM 137 mEq/L (136-147)
[2016-12-10 02:42] LABS: GLUCOSE 128 mg/dL (70-99)
[2016-12-10 02:43] LABS: ANION GAP 9 MEQ/L (2-14)
[2016-12-10 02:45] LABS: GFR ESTIMATE (CALCULATED) 21 mL/min/
[2016-12-10 02:53] LABS: UREA NITROGEN (BUN) 36 mg/dL (9-23)
[2016-12-10 03:00] LABS: HEMATOCRIT 25.9 % (38.0-50.0); MCH 25.8 PG (29.0-34.0); MCHC 29.7 G/DL (30.0-36.0); MCV 86.9 FL (86-99); MEAN PLAT.VOLUME 12.6 uM^3 (9.0-12.4); NRBC (%) 0.3 /100 WBC (0-0); PLATELET COUNT 185 K/uL (156-360); RBC DIS.WIDTH-CV 20.4 % (11.8-14.6); RBC DIS.WIDTH-SD 63.7 % (39-53); RED BLOOD COUNT 2.98 M/uL (4.00-5.50); WHITE BLOOD COUNT 9.2 K/uL (4.1-10.2)
[2016-12-10 08:36] LABS: POINT-OF-CARE METER ID UU13113748
[2016-12-10 12:11] LABS: POINT-OF-CARE METER ID UU13113748
[2016-12-10 17:57] LABS: POINT-OF-CARE METER ID UU13113748
[2016-12-10 22:31] LABS: POINT-OF-CARE METER ID UU13113748; POINT-OF-CARE USER ID LABHNS84
[2016-12-11] VITALS (21 sets, daily range): BP systolic 90–126; BP diastolic 46–94
[2016-12-11 06:44] LABS: BASOPHIL COUNT 0.1 K/uL (0-0.1); EOSINOPHIL (%) 5.8 % (0-5); EOSINOPHIL COUNT 0.5 K/uL (0-0.3); HEMATOCRIT 27.1 % (38.0-50.0); IMMATURE GRANULOCYTE (%) 2.6 % (0.0-0.7); IMMATURE GRANULOCYTE COUNT 0.2 K/uL; LYMPHOCYTE COUNT 0.7 K/uL (1.0-2.8); MCH 26.2 PG (29.0-34.0); MCHC 29.2 G/DL (30.0-36.0); MCV 89.7 FL (86-99); MEAN PLAT.VOLUME 12.3 uM^3 (9.0-12.4); MONOCYTE (%) 8.9 % (3-12); MONOCYTE COUNT 0.7 K/uL (0-0.8); NEUTROPHIL (%) 73.7 % (45-76); NRBC (%) 0.2 /100 WBC (0-0); PLATELET COUNT 200 K/uL (156-360); RBC DIS.WIDTH-SD 67.7 % (39-53); RED BLOOD COUNT 3.02 M/uL (4.00-5.50); WHITE BLOOD COUNT 8.1 K/uL (4.1-10.2)
[2016-12-11 06:51] LABS: ALKALINE PHOSPHATASE 69 IU/L (3-129); ANION GAP 8 MEQ/L (2-14); CHLORIDE 104 MEQ/L (99-109); GLUCOSE 134 mg/dL (70-99); POTASSIUM 5.7 MEQ/L (3.7-5.4); SAMPLE HEMOLYSIS CHECK 0; SAMPLE ICTERIC CHECK 0; SAMPLE LIPEMIA CHECK 0; SODIUM 140 MEQ/L (136-147); TOTAL BILIRUBIN 0.4 MG/DL (0.0-1.0); UREA NITROGEN (BUN) 52 mg/dL (9-23)
[2016-12-11 06:54] LABS: GFR ESTIMATE (CALCULATED) 17 mL/min/
[2016-12-11 12:44] LABS: POINT-OF-CARE METER ID UU13113748
[2016-12-11 17:08] LABS: POINT-OF-CARE METER ID UU13113748
[2016-12-11 22:04] LABS: POINT-OF-CARE METER ID UU13113748
[2016-12-12] VITALS (7 sets, daily range): BP systolic 103–127; BP diastolic 58–67
[2016-12-12 06:30] LABS: BASOPHIL COUNT 0.1 K/uL (0-0.1); EOSINOPHIL (%) 4.9 % (0-5); EOSINOPHIL COUNT 0.4 K/uL (0-0.3); HEMATOCRIT 29.1 % (38.0-50.0); IMMATURE GRANULOCYTE (%) 1.8 % (0.0-0.7); IMMATURE GRANULOCYTE COUNT 0.2 K/uL; INSTRUMENT ABS NEUTROPHIL CT 6.7 K/uL; LYMPHOCYTE COUNT 0.5 K/uL (1.0-2.8); MCH 27.1 PG (29.0-34.0); MCHC 30.9 G/DL (30.0-36.0); MCV 87.7 FL (86-99); MEAN PLAT.VOLUME 12.1 uM^3 (9.0-12.4); MONOCYTE (%) 11.4 % (3-12); NEUTROPHIL (%) 74.9 % (45-76); NEUTROPHIL COUNT 6.7 K/uL (1.8-6.4); PLATELET COUNT 154 K/uL (156-360); RBC DIS.WIDTH-CV 20.2 % (11.8-14.6); RBC DIS.WIDTH-SD 63.7 % (39-53); RED BLOOD COUNT 3.32 M/uL (4.00-5.50)
[2016-12-12 07:34] LABS: ANION GAP 11 MEQ/L (2-14); CHLORIDE 102 MEQ/L (99-109); POTASSIUM 5.3 MEQ/L (3.7-5.4); SAMPLE HEMOLYSIS CHECK 0; SAMPLE ICTERIC CHECK 0; SAMPLE LIPEMIA CHECK 0; SODIUM 139 MEQ/L (136-147)
[2016-12-12 07:39] LABS: GFR ESTIMATE (CALCULATED) 16 mL/min/; GLUCOSE 102 mg/dL (70-99); UREA NITROGEN (BUN) 56 mg/dL (9-23)
[2016-12-12 09:42] LABS: INTERNAL CONTROL VALID? YES
[2016-12-12 11:56] LABS: POINT-OF-CARE METER ID UU14208751
[2016-12-12 17:37] LABS: POINT-OF-CARE METER ID UU14208751
[2016-12-12 22:11] LABS: POINT-OF-CARE METER ID UU14208751; POINT-OF-CARE USER ID ENVSME70
[2016-12-13] VITALS: BP 122/68
[2016-12-13 04:00] VITALS: BP 105/58
[2016-12-13 04:11] LABS: BASOPHIL COUNT 0.1 K/uL (0-0.1); EOSINOPHIL (%) 2.6 % (0-5); EOSINOPHIL COUNT 0.3 K/uL (0-0.3); HEMATOCRIT 27.1 % (38.0-50.0); IMMATURE GRANULOCYTE (%) 1.6 % (0.0-0.7); IMMATURE GRANULOCYTE COUNT 0.2 K/uL; INSTRUMENT ABS NEUTROPHIL CT 7.3 K/uL; LYMPHOCYTE COUNT 0.6 K/uL (1.0-2.8); MCH 26.5 PG (29.0-34.0); MCHC 30.6 G/DL (30.0-36.0); MCV 86.6 FL (86-99); MEAN PLAT.VOLUME 12.1 uM^3 (9.0-12.4); MONOCYTE (%) 12.8 % (3-12); MONOCYTE COUNT 1.2 K/uL (0-0.8); NEUTROPHIL (%) 76.4 % (45-76); NEUTROPHIL COUNT 7.3 K/uL (1.8-6.4); PLATELET COUNT 156 K/uL (156-360); RBC DIS.WIDTH-CV 20.2 % (11.8-14.6); RBC DIS.WIDTH-SD 63.8 % (39-53); RED BLOOD COUNT 3.13 M/uL (4.00-5.50); WHITE BLOOD COUNT 9.6 K/uL (4.1-10.2)
[2016-12-13 04:22] LABS: CHLORIDE 102 mEq/L (99-109); POTASSIUM 5.5 mEq/L (3.7-5.4); SODIUM 139 mEq/L (136-147)
[2016-12-13 04:25] LABS: ANION GAP 10 MEQ/L (2-14)
[2016-12-13 04:28] LABS: GFR ESTIMATE (CALCULATED) 14 mL/min/
[2016-12-13 04:29] LABS: UREA NITROGEN (BUN) 71 mg/dL (9-23)
[2016-12-13 04:30] LABS: GLUCOSE 186 mg/dL (70-99)
[2016-12-13 07:00] VITALS: BP 116/62
[2016-12-13 11:27] LABS: POINT-OF-CARE METER ID UU14208751
[2016-12-13 11:30] VITALS: BP 87/50
[2016-12-13 14:30] VITALS: BP 110/55
[2016-12-13 15:44] LABS: INTER. NORMALIZED RATIO 1.1; PROTHROMBIN TIME 12.6 SEC (10.2-12.9)
[2016-12-13 15:46] LABS: PTT 44.9 SEC (25-37)
[2016-12-13 17:14] LABS: POINT-OF-CARE METER ID UU13113675
[2016-12-13 18:05] LABS: BASE EXCESS 2.1 mEq/L (-3 to +3); BICARBONATE 30.1 mEq/L (22-26); CARBOXY HGB 2.9 % (0-5); METHEMOGLOBIN 1.6 % (0-1.5)
[2016-12-13 18:06] LABS: COMMENTS - BLOOD GASES A+C+; DEVICE BIPAP; O2 FLOW 6 L/MIN; PCO2 67 mm Hg (35-45); PO2 55 mm Hg (80-100); SITE RR; pH 7.26 (7.35-7.45)
[2016-12-13 19:39] LABS: BASE EXCESS 3.8 mEq/L (-3 to +3); BICARBONATE 31.3 mEq/L (22-26); CARBOXY HGB 2.7 % (0-5); METHEMOGLOBIN 1.2 % (0-1.5); PCO2 65 mm Hg (35-45)
[2016-12-13 19:41] LABS: COMMENTS - BLOOD GASES C+A+; DEVICE BIPAP 15/5; O2 FLOW 5 L/MIN; PO2 88 mm Hg (80-100); SITE RR; TOTAL RESP RATE 12 resp/min; pH 7.29 (7.35-7.45)
[2016-12-13 19:54] LABS: BASOPHIL COUNT 0.1 K/uL (0-0.1); EOSINOPHIL (%) 1.4 % (0-5); EOSINOPHIL COUNT 0.1 K/uL (0-0.3); HEMATOCRIT 28.8 % (38.0-50.0); IMMATURE GRANULOCYTE (%) 1.2 % (0.0-0.7); IMMATURE GRANULOCYTE COUNT 0.1 K/uL; INSTRUMENT ABS NEUTROPHIL CT 7.8 K/uL; LYMPHOCYTE COUNT 0.4 K/uL (1.0-2.8); MCH 26.6 PG (29.0-34.0); MCHC 30.2 G/DL (30.0-36.0); MCV 88.1 FL (86-99); MEAN PLAT.VOLUME 11.3 uM^3 (9.0-12.4); MONOCYTE (%) 10.4 % (3-12); NEUTROPHIL (%) 82.7 % (45-76); NEUTROPHIL COUNT 7.8 K/uL (1.8-6.4); PLATELET COUNT 114 K/uL (156-360); RBC DIS.WIDTH-CV 20.3 % (11.8-14.6); RBC DIS.WIDTH-SD 64.9 % (39-53); RED BLOOD COUNT 3.27 M/uL (4.00-5.50); WHITE BLOOD COUNT 9.4 K/uL (4.1-10.2)
[2016-12-13 20:11] LABS: ANION GAP 10 MEQ/L (2-14); CHLORIDE 101 MEQ/L (99-109); POTASSIUM 5.1 MEQ/L (3.7-5.4); SAMPLE HEMOLYSIS CHECK 0; SAMPLE ICTERIC CHECK 0; SAMPLE LIPEMIA CHECK 0; SODIUM 138 MEQ/L (136-147)
[2016-12-13 20:14] LABS: TROP-I INTERPRETATION NEGATIVE; TROPONIN-I 0.09 ng/mL (0.0-0.30)
[2016-12-13 20:18] LABS: GFR ESTIMATE (CALCULATED) 22 mL/min/; GLUCOSE 127 mg/dL (70-99); UREA NITROGEN (BUN) 48 mg/dL (9-23)
[2016-12-13 22:21] LABS: POINT-OF-CARE METER ID UU13113748
[2016-12-14 04:24] LABS: INTER. NORMALIZED RATIO 1.3
[2016-12-14 04:48] LABS: CHLORIDE 98 mEq/L (99-109); POTASSIUM 4.1 mEq/L (3.7-5.4); SODIUM 129 mEq/L (136-147)
[2016-12-14 04:50] LABS: GLUCOSE 87 mg/dL (70-99)
[2016-12-14 04:51] LABS: ANION GAP 8 MEQ/L (2-14); TROP-I INTERPRETATION NEGATIVE; TROPONIN-I 0.12 ng/mL (0.0-0.30)
[2016-12-14 04:54] LABS: GFR ESTIMATE (CALCULATED) 25 mL/min/
[2016-12-14 04:55] LABS: UREA NITROGEN (BUN) 43 mg/dL (9-23)
[2016-12-14 08:00] VITALS: BP 122/62
[2016-12-14 11:41] LABS: TROP-I INTERPRETATION NEGATIVE; TROPONIN-I 0.12 ng/mL (0.0-0.30)
[2016-12-14 12:00] VITALS: BP 113/86
[2016-12-14 12:51] LABS: POINT-OF-CARE METER ID UU14174217
[2016-12-14 16:00] VITALS: BP 107/59
[2016-12-14 17:36] LABS: POINT-OF-CARE METER ID UU13113748
[2016-12-14 20:00] VITALS: BP 140/81
[2016-12-14 22:33] LABS: POINT-OF-CARE METER ID UU14208751
[2016-12-14 22:36] VITALS: BP 111/57
[2016-12-15 04:07] VITALS: BP 115/68
[2016-12-15 05:06] LABS: BASOPHIL COUNT 0.1 K/uL (0-0.1); EOSINOPHIL (%) 2.6 % (0-5); EOSINOPHIL COUNT 0.3 K/uL (0-0.3); IMMATURE GRANULOCYTE (%) 1.2 % (0.0-0.7); IMMATURE GRANULOCYTE COUNT 0.1 K/uL; LYMPHOCYTE COUNT 0.8 K/uL (1.0-2.8); MCH 26.1 PG (29.0-34.0); MCHC 30.8 G/DL (30.0-36.0); MCV 84.7 FL (86-99); MEAN PLAT.VOLUME 11.3 uM^3 (9.0-12.4); MONOCYTE (%) 13.7 % (3-12); MONOCYTE COUNT 1.3 K/uL (0-0.8); NEUTROPHIL (%) 73.9 % (45-76); PLATELET COUNT 130 K/uL (156-360); RBC DIS.WIDTH-CV 20.7 % (11.8-14.6); RBC DIS.WIDTH-SD 63.7 % (39-53); RED BLOOD COUNT 2.95 M/uL (4.00-5.50); WHITE BLOOD COUNT 9.4 K/uL (4.1-10.2)
[2016-12-15 05:12] LABS: CHLORIDE 100 mEq/L (99-109); POTASSIUM 4.8 mEq/L (3.7-5.4); SODIUM 134 mEq/L (136-147)
[2016-12-15 05:15] LABS: GLUCOSE 152 mg/dL (70-99)
[2016-12-15 05:16] LABS: ANION GAP 12 MEQ/L (2-14)
[2016-12-15 05:18] LABS: GFR ESTIMATE (CALCULATED) 19 mL/min/
[2016-12-15 05:28] LABS: UREA NITROGEN (BUN) 75 mg/dL (9-23)
[2016-12-15 07:12] VITALS: BP 108/60
[2016-12-15 07:55] LABS: POINT-OF-CARE METER ID UU13113781
[2016-12-15 13:31] LABS: POINT-OF-CARE METER ID UU13113781; POINT-OF-CARE USER ID NUTSLF44
[2016-12-15 13:58] VITALS: BP 115/56
[2016-12-15 17:15] VITALS: BP 134/59
[2016-12-15 17:37] LABS: POINT-OF-CARE METER ID UU13113781
[2016-12-15 20:43] VITALS: BP 120/64
[2016-12-15 21:12] LABS: POINT-OF-CARE METER ID UU13113781
[2016-12-15 23:57] VITALS: BP 132/65
[2016-12-16 03:57] VITALS: BP 141/63
[2016-12-16 06:40] LABS: INTER. NORMALIZED RATIO 1.3; PROTHROMBIN TIME 14.1 SEC (10.2-12.9)
[2016-12-16 06:46] LABS: PTT 43.1 SEC (25-37)
[2016-12-16 07:49] VITALS: BP 105/52
[2016-12-16 11:39] VITALS: BP 106/59
[2016-12-16 15:45] LABS: INTER. NORMALIZED RATIO 1.3; PROTHROMBIN TIME 13.9 SEC (10.2-12.9)
[2016-12-16 15:53] LABS: PTT 79.9 SEC (25-37)
[2016-12-16 16:47] VITALS: BP 111/58
[2016-12-16 20:12] VITALS: BP 129/81
[2016-12-16 21:10] LABS: POINT-OF-CARE METER ID UU13113781
[2016-12-16 22:18] LABS: INTER. NORMALIZED RATIO 1.3; PROTHROMBIN TIME 14.1 SEC (10.2-12.9)
[2016-12-16 22:20] LABS: PTT 62.2 SEC (25-37)
[2016-12-16 23:32] VITALS: BP 135/58
[2016-12-17 04:23] VITALS: BP 114/54
[2016-12-17 07:30] VITALS: BP 136/63
[2016-12-17 08:30] LABS: POINT-OF-CARE METER ID UU13113698
[2016-12-17 11:38] LABS: POINT-OF-CARE METER ID UU13113698
[2016-12-17 12:00] VITALS: BP 132/68
[2016-12-17 16:38] LABS: POINT-OF-CARE METER ID UU13113781; POINT-OF-CARE USER ID ENVKC36
[2016-12-17 19:24] VITALS: BP 119/65
[2016-12-17 23:36] VITALS: BP 110/55
[2016-12-18] VITALS (7 sets, daily range): BP systolic 91–122; BP diastolic 52–65
[2016-12-18 05:57] LABS: BASOPHIL COUNT 0.1 K/uL (0-0.1); EOSINOPHIL (%) 6.3 % (0-5); EOSINOPHIL COUNT 0.6 K/uL (0-0.3); HEMATOCRIT 26.3 % (38.0-50.0); IMMATURE GRANULOCYTE (%) 0.8 % (0.0-0.7); IMMATURE GRANULOCYTE COUNT 0.1 K/uL; INSTRUMENT ABS NEUTROPHIL CT 7.5 K/uL; LYMPHOCYTE COUNT 0.7 K/uL (1.0-2.8); MCHC 29.7 G/DL (30.0-36.0); MCV 87.7 FL (86-99); MONOCYTE (%) 10.1 % (3-12); NEUTROPHIL (%) 74.5 % (45-76); NEUTROPHIL COUNT 7.5 K/uL (1.8-6.4); RBC DIS.WIDTH-CV 20.1 % (11.8-14.6); RBC DIS.WIDTH-SD 63.6 % (39-53)
[2016-12-18 06:18] LABS: PLAT.SUFFICIENCY ADEQUATE
[2016-12-18 06:24] LABS: PLATELET COUNT 193 K/uL (156-360)
[2016-12-18 07:24] LABS: ANION GAP 14 MEQ/L (2-14); CHLORIDE 99 MEQ/L (99-109); GLUCOSE 131 mg/dL (70-99); SAMPLE HEMOLYSIS CHECK 0; SAMPLE ICTERIC CHECK 0; SAMPLE LIPEMIA CHECK 0; SODIUM 135 MEQ/L (136-147); UREA NITROGEN (BUN) 71 mg/dL (9-23)
[2016-12-18 07:27] LABS: GFR ESTIMATE (CALCULATED) 16 mL/min/
[2016-12-18 07:47] LABS: POINT-OF-CARE METER ID UU13113781
[2016-12-18 13:34] LABS: POINT-OF-CARE METER ID UU13113781
[2016-12-18 17:34] LABS: POINT-OF-CARE METER ID UU13113781
[2016-12-18 21:18] LABS: POINT-OF-CARE METER ID UU13113781
[2016-12-19] VITALS (16 sets, daily range): BP systolic 105–143; BP diastolic 54–68
[2016-12-19 05:16] LABS: MCH 26.8 PG (29.0-34.0); MCHC 30.4 G/DL (30.0-36.0); MCV 88.2 FL (86-99); MEAN PLAT.VOLUME 11.6 uM^3 (9.0-12.4); PLATELET COUNT 166 K/uL (156-360); RBC DIS.WIDTH-CV 19.9 % (11.8-14.6); RBC DIS.WIDTH-SD 64.2 % (39-53); RED BLOOD COUNT 2.72 M/uL (4.00-5.50); WHITE BLOOD COUNT 8.8 K/uL (4.1-10.2)
[2016-12-19 05:28] LABS: PTT 72.3 SEC (25-37)
[2016-12-19 05:52] LABS: ANION GAP 8 MEQ/L (2-14); CHLORIDE 99 MEQ/L (99-109); GFR ESTIMATE (CALCULATED) 19 mL/min/; INTER. NORMALIZED RATIO 1.3; POTASSIUM 4.9 MEQ/L (3.7-5.4); PROTHROMBIN TIME 14.7 SEC (10.2-12.9); SAMPLE HEMOLYSIS CHECK 0; SAMPLE ICTERIC CHECK 0; SAMPLE LIPEMIA CHECK 0; SODIUM 137 MEQ/L (136-147); UREA NITROGEN (BUN) 50 mg/dL (9-23)
[2016-12-19 05:53] LABS: GLUCOSE 96 mg/dL (70-99)
[2016-12-19 08:07] LABS: POINT-OF-CARE METER ID UU13113781; POINT-OF-CARE USER ID ENVKC36
[2016-12-19 11:41] LABS: BASE EXCESS 3.9 mEq/L (-3 to +3); BICARBONATE 31.9 mEq/L (22-26); CARBOXY HGB 2.8 % (0-5); METHEMOGLOBIN 1.4 % (0-1.5); PO2 98 mm Hg (80-100)
[2016-12-19 11:42] LABS: COMMENTS - BLOOD GASES A+C+; DEVICE NC; O2 FLOW 3 L/MIN; PCO2 71 mm Hg (35-45); SITE RR; pH 7.26 (7.35-7.45)
[2016-12-19 12:11] LABS: POINT-OF-CARE METER ID UU13113803; POINT-OF-CARE USER ID ENVKC36
[2016-12-19 13:57] LABS: METH RESISTANT S AUREUS PCR NEGATIVE (NEGATIVE); PROBE CHECK PASS; SPECIMEN PROCESSING CONTROL PASS
[2016-12-19 17:46] LABS: POINT-OF-CARE METER ID UU14208751
[2016-12-19 18:24] LABS: BASE EXCESS 4.7 mEq/L (-3 to +3); BICARBONATE 32.2 mEq/L (22-26); CARBOXY HGB 2.8 % (0-5); METHEMOGLOBIN 1.3 % (0-1.5); PCO2 67 mm Hg (35-45)
[2016-12-19 18:25] LABS: COMMENTS - BLOOD GASES A+C+; CONTINUOUS POS AIRWAY PRESSURE 5 cm H2O; DEVICE NIV; FI02 30 %; MODE SPONT; PO2 64 mm Hg (80-100); PRES. SUPPORT 10 CM/H2O; SITE RR; TOTAL RESP RATE 16 resp/min; pH 7.29 (7.35-7.45)
[2016-12-19 23:12] LABS: BASE EXCESS 4.4 mEq/L (-3 to +3); BICARBONATE 30.8 mEq/L (22-26); METHEMOGLOBIN 1.3 % (0-1.5); pH 7.34 (7.35-7.45)
[2016-12-19 23:13] LABS: COMMENTS - BLOOD GASES C+A+; DEVICE NIV; FI02 30 %; MODE SPONT; PCO2 57 mm Hg (35-45); PEEP 5 CM/H20; PO2 91 mm Hg (80-100); PRES. SUPPORT 15 CM/H2O; SITE RR; TOTAL RESP RATE 16 resp/min
[2016-12-19 23:48] LABS: POINT-OF-CARE METER ID UU14162636; POINT-OF-CARE USER ID 609231305
[2016-12-20] VITALS (24 sets, daily range): BP systolic 83–120; BP diastolic 52–73
[2016-12-20 05:22] LABS: POINT-OF-CARE METER ID UU14208751
[2016-12-20 05:28] LABS: EOSINOPHIL (%) 0.3 % (0-5); HEMATOCRIT 26.2 % (38.0-50.0); IMMATURE GRANULOCYTE COUNT 0.2 K/uL; INSTRUMENT ABS NEUTROPHIL CT 7.5 K/uL; LYMPHOCYTE COUNT 0.2 K/uL (1.0-2.8); MCH 26.4 PG (29.0-34.0); MCHC 29.8 G/DL (30.0-36.0); MCV 88.5 FL (86-99); MEAN PLAT.VOLUME 10.8 uM^3 (9.0-12.4); MONOCYTE (%) 0.9 % (3-12); MONOCYTE COUNT 0.1 K/uL (0-0.8); NEUTROPHIL (%) 93.5 % (45-76); NEUTROPHIL COUNT 7.5 K/uL (1.8-6.4); PLATELET COUNT 171 K/uL (156-360); RBC DIS.WIDTH-CV 19.8 % (11.8-14.6); RBC DIS.WIDTH-SD 63.7 % (39-53); RED BLOOD COUNT 2.96 M/uL (4.00-5.50)
[2016-12-20 05:38] LABS: INTER. NORMALIZED RATIO 1.3; PROTHROMBIN TIME 14.1 SEC (10.2-12.9)
[2016-12-20 05:41] LABS: PTT 76.5 SEC (25-37)
[2016-12-20 05:56] LABS: ANION GAP 9 MEQ/L (2-14); CHLORIDE 99 MEQ/L (99-109); GFR ESTIMATE (CALCULATED) 15 mL/min/; MAGNESIUM 2.2 mg/dl (1.3-2.7); POTASSIUM 5.7 MEQ/L (3.7-5.4); SAMPLE HEMOLYSIS CHECK 0; SAMPLE ICTERIC CHECK 0; SAMPLE LIPEMIA CHECK 0; SODIUM 136 MEQ/L (136-147); UREA NITROGEN (BUN) 63 mg/dL (9-23)
[2016-12-20 05:57] LABS: GLUCOSE 218 mg/dL (70-99)
[2016-12-20 09:26] LABS: BASE EXCESS 1.9 mEq/L (-3 to +3); BICARBONATE 30.2 mEq/L (22-26); CARBOXY HGB 2.6 % (0-5); METHEMOGLOBIN 1.1 % (0-1.5); PO2 77 mm Hg (80-100)
[2016-12-20 09:27] LABS: COMMENTS - BLOOD GASES +C; DEVICE NC; O2 FLOW 4 L/MIN; PCO2 72 mm Hg (35-45); SITE RR +A; TOTAL RESP RATE 24 resp/min; pH 7.23 (7.35-7.45)
[2016-12-20 12:52] LABS: POINT-OF-CARE METER ID UU14208751
[2016-12-20 17:52] LABS: POINT-OF-CARE METER ID UU13113731
[2016-12-20 23:26] LABS: POINT-OF-CARE METER ID UU14208751
[2016-12-21] VITALS (20 sets, daily range): BP systolic 94–126; BP diastolic 46–78
[2016-12-21 05:37] LABS: POINT-OF-CARE METER ID UU14174217
[2016-12-21 05:40] LABS: EOSINOPHIL (%) 0 % (0-5); HEMATOCRIT 23.4 % (38.0-50.0); IMMATURE GRANULOCYTE (%) 1.6 % (0.0-0.7); IMMATURE GRANULOCYTE COUNT 0.2 K/uL; INSTRUMENT ABS NEUTROPHIL CT 9.2 K/uL; LYMPHOCYTE COUNT 0.4 K/uL (1.0-2.8); MCH 26.9 PG (29.0-34.0); MCHC 30.8 G/DL (30.0-36.0); MCV 87.3 FL (86-99); MEAN PLAT.VOLUME 10.9 uM^3 (9.0-12.4); MONOCYTE (%) 3.6 % (3-12); MONOCYTE COUNT 0.4 K/uL (0-0.8); NEUTROPHIL (%) 90.8 % (45-76); NEUTROPHIL COUNT 9.2 K/uL (1.8-6.4); PLATELET COUNT 161 K/uL (156-360); RBC DIS.WIDTH-CV 19.9 % (11.8-14.6); RED BLOOD COUNT 2.68 M/uL (4.00-5.50); WHITE BLOOD COUNT 10.1 K/uL (4.1-10.2)
[2016-12-21 07:55] LABS: ANION GAP 13 MEQ/L (2-14); CHLORIDE 100 MEQ/L (99-109); GFR ESTIMATE (CALCULATED) 19 mL/min/; GLUCOSE 232 mg/dL (70-99); MAGNESIUM 2.3 mg/dl (1.3-2.7); SAMPLE HEMOLYSIS CHECK 0; SAMPLE ICTERIC CHECK 0; SAMPLE LIPEMIA CHECK 0; SODIUM 139 MEQ/L (136-147); UREA NITROGEN (BUN) 49 mg/dL (9-23)
[2016-12-21 12:52] LABS: POINT-OF-CARE METER ID UU14174217
[2016-12-21 17:26] LABS: POINT-OF-CARE METER ID UU14174217
[2016-12-21 21:41] LABS: POINT-OF-CARE METER ID UU14174217
[2016-12-22] VITALS (24 sets, daily range): BP systolic 11–133; BP diastolic 57–83
[2016-12-22 03:49] LABS: EOSINOPHIL (%) 0 % (0-5); HEMATOCRIT 24.1 % (38.0-50.0); IMMATURE GRANULOCYTE (%) 2.3 % (0.0-0.7); IMMATURE GRANULOCYTE COUNT 0.3 K/uL; INSTRUMENT ABS NEUTROPHIL CT 12.1 K/uL; LYMPHOCYTE COUNT 0.4 K/uL (1.0-2.8); MCH 26.3 PG (29.0-34.0); MCHC 30.3 G/DL (30.0-36.0); MCV 86.7 FL (86-99); MEAN PLAT.VOLUME 11.8 uM^3 (9.0-12.4); MONOCYTE (%) 4.6 % (3-12); MONOCYTE COUNT 0.6 K/uL (0-0.8); NEUTROPHIL (%) 89.7 % (45-76); NEUTROPHIL COUNT 12.1 K/uL (1.8-6.4); PLATELET COUNT 208 K/uL (156-360); RBC DIS.WIDTH-CV 20.3 % (11.8-14.6); RED BLOOD COUNT 2.78 M/uL (4.00-5.50); WHITE BLOOD COUNT 13.4 K/uL (4.1-10.2)
[2016-12-22 03:54] LABS: INTER. NORMALIZED RATIO 1.3; PROTHROMBIN TIME 14.6 SEC (10.2-12.9)
[2016-12-22 03:56] LABS: PTT 65.5 SEC (25-37)
[2016-12-22 04:00] LABS: CHLORIDE 98 mEq/L (99-109); POTASSIUM 4.5 mEq/L (3.7-5.4); SODIUM 134 mEq/L (136-147)
[2016-12-22 04:02] LABS: GLUCOSE 202 mg/dL (70-99)
[2016-12-22 04:03] LABS: ANION GAP 10 MEQ/L (2-14)
[2016-12-22 04:38] LABS: GFR ESTIMATE (CALCULATED) 13 mL/min/; UREA NITROGEN (BUN) 78 mg/dL (9-23)
[2016-12-22 08:32] LABS: POINT-OF-CARE METER ID UU14162636
[2016-12-22 12:03] LABS: HBSG INDEX 0.16
[2016-12-22 12:04] LABS: AHBS INDEX 0.38; HEPATITIS B SURFACE ANTIBODY Nonreactive
[2016-12-22 12:19] LABS: POINT-OF-CARE METER ID UU14162636
[2016-12-22 13:50] LABS: IRON 61 MCG/DL (35-150)
[2016-12-22 15:06] LABS: BASE EXCESS 3.8 mEq/L (-3 to +3); BICARBONATE 29.9 mEq/L (22-26); CARBOXY HGB 2.3 % (0-5); METHEMOGLOBIN 1.8 % (0-1.5); PCO2 53 mm Hg (35-45); PO2 102 mm Hg (80-100); SITE RB; pH 7.36 (7.35-7.45)
[2016-12-22 15:07] LABS: COMMENTS - BLOOD GASES +C; DEVICE NC; O2 FLOW 3 L/MIN; TOTAL RESP RATE 24 resp/min
[2016-12-22 15:50] LABS: POINT-OF-CARE METER ID UU14162636
[2016-12-22 22:20] LABS: POINT-OF-CARE METER ID UU13113731
[2016-12-23] VITALS: BP 99/65
[2016-12-23 04:00] VITALS: BP 116/76
[2016-12-23 05:46] LABS: HEMATOCRIT 25.7 % (38.0-50.0); MCH 27.3 PG (29.0-34.0); MCHC 31.1 G/DL (30.0-36.0); MCV 87.7 FL (86-99); MEAN PLAT.VOLUME 12.2 uM^3 (9.0-12.4); NRBC (%) 0.5 /100 WBC (0-0); PLATELET COUNT 156 K/uL (156-360); RBC DIS.WIDTH-CV 19.9 % (11.8-14.6); RBC DIS.WIDTH-SD 62.3 % (39-53); RED BLOOD COUNT 2.93 M/uL (4.00-5.50); WHITE BLOOD COUNT 16.4 K/uL (4.1-10.2)
[2016-12-23 06:36] LABS: ANION GAP 10 MEQ/L (2-14); CHLORIDE 100 MEQ/L (99-109); GFR ESTIMATE (CALCULATED) 14 mL/min/; GLUCOSE 259 mg/dL (70-99); SAMPLE HEMOLYSIS CHECK 0; SAMPLE ICTERIC CHECK 0; SAMPLE LIPEMIA CHECK 0; SODIUM 137 MEQ/L (136-147); UREA NITROGEN (BUN) 75 mg/dL (9-23)
[2016-12-23 07:28] LABS: ABS NEUTROPHIL COUNT 15.1; ANISOCYTOSIS 2+; ATYPICAL LYMPHOCYTE 0.9 %; EOSINOPHIL ABS CT 0; HYPOCHROMASIA 1+; INSTRUMENT ABS NEUTROPHIL CT 13.9 K/uL; LYMPHOCYTES 3.5 % (15.0-45.0); MACROCYTES 1+; METAMYELOCYTES 1.8 %; NUCLEATED RBC'S 0.9; OVALOCYTES 1+; PLAT.SUFFICIENCY ADEQUATE; POIKILOCYTOSIS 1+; POLYCHROMASIA 1+; SEG.NEUTROPHILS 85.1 % (46.0-76.0); SPHEROCYTES 1+; TEAR DROP CELLS 1+
[2016-12-23 08:00] VITALS: BP 114/68
[2016-12-23 09:35] LABS: POINT-OF-CARE METER ID UU13113748
[2016-12-23 12:00] VITALS: BP 131/81
[2016-12-23 12:07] LABS: POINT-OF-CARE METER ID UU14208751
[2016-12-23 13:04] LABS: INTER. NORMALIZED RATIO 2.8; PROTHROMBIN TIME 31.9 SEC (10.2-12.9)
[2016-12-23 13:05] LABS: PTT 108.5 SEC (25-37)
[2016-12-23 16:00] VITALS: BP 124/67
[2016-12-23 17:29] LABS: POINT-OF-CARE METER ID UU13113748
[2016-12-23 20:00] VITALS: BP 129/81
[2016-12-23 21:57] LABS: POINT-OF-CARE METER ID UU14208751
[2016-12-24] VITALS (7 sets, daily range): BP systolic 107–142; BP diastolic 67–87
[2016-12-24 06:16] LABS: HEMATOCRIT 26.4 % (38.0-50.0); MCH 27.2 PG (29.0-34.0); MCHC 30.7 G/DL (30.0-36.0); MCV 88.6 FL (86-99); MEAN PLAT.VOLUME 11.1 uM^3 (9.0-12.4); NRBC (%) 0.7 /100 WBC (0-0); PLATELET COUNT 154 K/uL (156-360); RBC DIS.WIDTH-CV 20.3 % (11.8-14.6); RED BLOOD COUNT 2.98 M/uL (4.00-5.50); WHITE BLOOD COUNT 16.3 K/uL (4.1-10.2)
[2016-12-24 06:22] LABS: INTER. NORMALIZED RATIO 4.1; PROTHROMBIN TIME 48.3 SEC (10.2-12.9)
[2016-12-24 07:01] LABS: ANION GAP 11 MEQ/L (2-14); CHLORIDE 100 MEQ/L (99-109); GFR ESTIMATE (CALCULATED) 11 mL/min/; GLUCOSE 238 mg/dL (70-99); MAGNESIUM 2.1 mg/dl (1.3-2.7); POTASSIUM 5.6 MEQ/L (3.7-5.4); SAMPLE HEMOLYSIS CHECK 0; SAMPLE ICTERIC CHECK 0; SAMPLE LIPEMIA CHECK 0; SODIUM 136 MEQ/L (136-147); UREA NITROGEN (BUN) 92 mg/dL (9-23)
[2016-12-24 07:23] LABS: ABS NEUTROPHIL COUNT 15.3; ANISOCYTOSIS 2+; BAND NEUTROPHILS 1.8 % (0-8.0); EOSINOPHIL ABS CT 0; HYPOCHROMASIA 1+; INSTRUMENT ABS NEUTROPHIL CT 13.7 K/uL; LYMPHOCYTES 2.6 % (15.0-45.0); MACROCYTES 2+; METAMYELOCYTES 1.8 %; NUCLEATED RBC'S 2.7; OVALOCYTES 1+; PLAT.SUFFICIENCY DECREASED; POIKILOCYTOSIS 1+; POLYCHROMASIA 1+; SPHEROCYTES 1+; TEAR DROP CELLS 1+
[2016-12-24 13:28] LABS: POINT-OF-CARE METER ID UU13113748
[2016-12-24 16:39] LABS: POINT-OF-CARE METER ID UU13113748
[2016-12-24 21:51] LABS: POINT-OF-CARE METER ID UU13113748
[2016-12-25] VITALS: BP 123/73
[2016-12-25 04:00] VITALS: BP 109/63
[2016-12-25 06:08] LABS: HEMATOCRIT 29.1 % (38.0-50.0); MCH 27.1 PG (29.0-34.0); MCHC 29.9 G/DL (30.0-36.0); MCV 90.7 FL (86-99); MEAN PLAT.VOLUME 10.9 uM^3 (9.0-12.4); NRBC (%) 0.7 /100 WBC (0-0); PLATELET COUNT 176 K/uL (156-360); RBC DIS.WIDTH-CV 20.9 % (11.8-14.6); RED BLOOD COUNT 3.21 M/uL (4.00-5.50); WHITE BLOOD COUNT 17.4 K/uL (4.1-10.2)
[2016-12-25 06:53] LABS: INTER. NORMALIZED RATIO 3.6; PROTHROMBIN TIME 42.2 SEC (10.2-12.9)
[2016-12-25 07:00] VITALS: BP 118/68
[2016-12-25 07:01] LABS: PTT 91.8 SEC (25-37)
[2016-12-25 07:18] LABS: ANION GAP 12 MEQ/L (2-14); CHLORIDE 100 MEQ/L (99-109); GFR ESTIMATE (CALCULATED) 10 mL/min/; GLUCOSE 147 mg/dL (70-99); MAGNESIUM 2.1 mg/dl (1.3-2.7); POTASSIUM 5.5 MEQ/L (3.7-5.4); SAMPLE HEMOLYSIS CHECK 0; SAMPLE ICTERIC CHECK 0; SAMPLE LIPEMIA CHECK 0; SODIUM 137 MEQ/L (136-147)
[2016-12-25 07:25] LABS: POINT-OF-CARE METER ID UU14162636
[2016-12-25 07:29] LABS: UREA NITROGEN (BUN) 107 mg/dL (9-23)
[2016-12-25 07:32] LABS: ABS NEUTROPHIL COUNT 14.7; ANISOCYTOSIS 2+; ATYPICAL LYMPHOCYTE 0.9 %; BAND NEUTROPHILS 1.7 % (0-8.0); EOSINOPHIL ABS CT 0; INSTRUMENT ABS NEUTROPHIL CT 14.1 K/uL; LYMPHOCYTES 4.4 % (15.0-45.0); MACROCYTES 1+; METAMYELOCYTES 4.3 %; MYELOCYTES 1.7 %; OVALOCYTES 1+; PLAT.SUFFICIENCY ADEQUATE; POIKILOCYTOSIS 1+; POLYCHROMASIA 1+; SEG.NEUTROPHILS 82.6 % (46.0-76.0); SPHEROCYTES 1+; TEAR DROP CELLS 1+
[2016-12-25 11:30] VITALS: BP 115/68
[2016-12-25 11:52] LABS: POINT-OF-CARE METER ID UU13113748
[2016-12-25 12:00] VITALS: BP 130/72
[2016-12-25] MEDS ORDERED: DUONEB 2.5-0.5 M3 ML AEROSOL (12:33)
[2016-12-25] MEDS ORDERED: COUMADIN1 MG PO (12:33)
[2016-12-25] MEDS ORDERED: MIDODRINE HCL5 MG PO (12:33)
[2016-12-25 14:00] VITALS: BP 116/89
== END 2016-12-25 14:49 | disposition designated cancer center or children's hospital (05) | DRG 682 ==
LOC: EME → EDBD 14:20 → EME 14:20 → 4WEST 18:14 → EDOF 18:14 → 4EAST 18:14 → 4WEST 21:01 → 4EAST 11-25 23:30 → 4WEST 11-26 17:28 → ENRESERV 12-14 21:03 → 4EAST 12-14 22:30 → ENRESERV 12-19 11:54 → 4WEST 12-19 12:18 → ENPENDDIS 12-25 15:00
PROVIDERS: Emergency Medicine; Family Medicine; Internal Medicine; Internal Medicine Critical Care Medicine; Internal Medicine Nephrology; Internal Medicine Pulmonary Disease; Obstetrics & Gynecology; Surgery
PROC: 0BH17EZ Insertion of Endotracheal Airway into Trachea, Via Natural or Artificial Opening (ICD-10-PCS; principal; 2016-11-23)
PROC: 5A1D60Z (ICD-10-PCS; principal; 2016-11-23)
PROC: B548ZZA Ultrasonography of Superior Vena Cava, Guidance (ICD-10-PCS; principal; 2016-11-23)
PROC: 02HV33Z Insertion of Infusion Device into Superior Vena Cava, Percutaneous Approach (ICD-10-PCS; principal; 2016-11-23)
PROC: 5A1945Z Respiratory Ventilation, 24-96 Consecutive Hours (ICD-10-PCS; principal; 2016-11-23)
PROC: 0BH17EZ Insertion of Endotracheal Airway into Trachea, Via Natural or Artificial Opening (ICD-10-PCS; 2016-11-26)
PROC: 5A1945Z Respiratory Ventilation, 24-96 Consecutive Hours (ICD-10-PCS; 2016-11-26)
PROC: 5A09558 Assistance with Respiratory Ventilation, Greater than 96 Consecutive Hours, Intermittent Positive Airway Pressure (ICD-10-PCS; 2016-11-30)
PROC: 30233N1 Transfusion of Nonautologous Red Blood Cells into Peripheral Vein, Percutaneous Approach (ICD-10-PCS; 2016-12-11)
PROC: 02HV33Z Insertion of Infusion Device into Superior Vena Cava, Percutaneous Approach (ICD-10-PCS; 2016-12-13)
PROC: 02PY33Z Removal of Infusion Device from Great Vessel, Percutaneous Approach (ICD-10-PCS; 2016-12-13)
PROC: B5181ZA Fluoroscopy of Superior Vena Cava using Low Osmolar Contrast, Guidance (ICD-10-PCS; 2016-12-13)
DX: N17.0 Acute kidney failure with tubular necrosis (principal); I82.622 Acute embolism and thrombosis of deep veins of left upper extremity; L03.115 Cellulitis of right lower limb; I13.2 Hypertensive heart and chronic kidney disease with heart failure and with stage 5 chronic kidney disease, or end stage renal disease; I50.42 Chronic combined systolic (congestive) and diastolic (congestive) heart failure; N18.6 End stage renal disease; E11.22 Type 2 diabetes mellitus with diabetic chronic kidney disease; E11.21 Type 2 diabetes mellitus with diabetic nephropathy; E87.2 Acidosis; E87.5 Hyperkalemia; J96.21 Acute and chronic respiratory failure with hypoxia; J96.22 Acute and chronic respiratory failure with hypercapnia; J44.1 Chronic obstructive pulmonary disease with (acute) exacerbation; E11.65 Type 2 diabetes mellitus with hyperglycemia; N25.81 Secondary hyperparathyroidism of renal origin; I42.0 Dilated cardiomyopathy; I25.5 Ischemic cardiomyopathy; I27.2 Other secondary pulmonary hypertension; I25.10 Atherosclerotic heart disease of native coronary artery without angina pectoris; E78.5 Hyperlipidemia, unspecified; D50.9 Iron deficiency anemia, unspecified; E83.39 Other disorders of phosphorus metabolism; E83.51 Hypocalcemia; G47.33 Obstructive sleep apnea (adult) (pediatric); I49.3 Ventricular premature depolarization; I95.89 Other hypotension; R53.81 Other malaise; M19.90 Unspecified osteoarthritis, unspecified site; G89.29 Other chronic pain; M54.9 Dorsalgia, unspecified; E66.01 Morbid (severe) obesity due to excess calories; Z66 Do not resuscitate; Z68.39 Body mass index [BMI] 39.0-39.9, adult; Z79.84 Long term (current) use of oral hypoglycemic drugs; Z87.891 Personal history of nicotine dependence; Z95.1 Presence of aortocoronary bypass graft
CPT/HCPCS: 36600; 70450; 71010; 71020; 76770; 80048; 80048 91; 80053; 80069; 80076; 81003; 82140; 82272; 82330; 82436; 82550; 82550 91; 82570; 82803; 82948; 83036; 83540; 83605; 83690; 83735; 83880; 83970; 84100; 84156; 84300; 84466; 84478; 84484; 85025; 85025 91; 85027; 85610; 85730; 86334; 86706; 86900; 86901; 86920; 87070; 87205; 87340; 87641; 92526 GN; 92610 GN; 93005; 93306; 93970; 93971; 94002; 94003; 94010; 94640; 94640 76; 94660; 94667; 94668; 94760; 94799; 97530 GO; 97530 GP; 99202; 99281; 99285; C1751; C1752; C1788; J0610; J0690; J0692; J0881; J1630; J1644; J1756; J1815; J1940; J2543; J2704; J2920; J2930; J2997; J3010; J7030; J7050; J7512; P9016; P9047; S0028

== ENCOUNTER 2016-12-29 12:59 | Emergency (ER) | payer OTHER, MEDICARE ==
[~2016-12-29] VITALS: Ht 177.8 cm; Wt 113.7 kg
[~2016-12-29 12:59] MED LIST: ALLOPURINOL100 MG PO; COUMADIN1 MG PO; DUONEB 2.5-0.5 M3 ML AEROSOL; ENTRESTO 24 MG1 EACH PO; EXCEDRIN EXTRA1 EACH PO; GLUCOTROL5 MG PO; LASIX80 MG PO; LOPRESSOR25 MG PO; LYRICA50 MG PO; METFORMIN HCL850 MG PO; MIDODRINE HCL5 MG PO; OMEPRAZOLE20 MG PO; OXAYDO5 MG PO
[2016-12-29 14:51] LABS: EOSINOPHIL COUNT 0.6 K/uL (0-0.3); HEMATOCRIT 34.2 % (38.0-50.0); IMMATURE GRANULOCYTE COUNT 0.3 K/uL; INSTRUMENT ABS NEUTROPHIL CT 12.1 K/uL; LYMPHOCYTE COUNT 0.4 K/uL (1.0-2.8); MCH 27.4 PG (29.0-34.0); MCHC 29.5 G/DL (30.0-36.0); MCV 92.7 FL (86-99); MEAN PLAT.VOLUME 11.2 uM^3 (9.0-12.4); MONOCYTE (%) 8.8 % (3-12); MONOCYTE COUNT 1.3 K/uL (0-0.8); NEUTROPHIL (%) 82.5 % (45-76); NEUTROPHIL COUNT 12.1 K/uL (1.8-6.4); PLATELET COUNT 125 K/uL (156-360); RBC DIS.WIDTH-CV 22.1 % (11.8-14.6); RBC DIS.WIDTH-SD 74.4 % (39-53); RED BLOOD COUNT 3.69 M/uL (4.00-5.50); WHITE BLOOD COUNT 14.6 K/uL (4.1-10.2)
[2016-12-29 14:57] LABS: CHLORIDE 100 mEq/L (99-109); POTASSIUM 4.5 mEq/L (3.7-5.4); SODIUM 141 mEq/L (136-147)
[2016-12-29 14:59] LABS: GLUCOSE 113 mg/dL (70-99)
[2016-12-29 15:01] LABS: ANION GAP 11 MEQ/L (2-14)
[2016-12-29 15:04] LABS: UREA NITROGEN (BUN) 66 mg/dL (9-23)
[2016-12-29 15:07] LABS: GFR ESTIMATE (CALCULATED) 16 mL/min/; TROP-I INTERPRETATION NEGATIVE; TROPONIN-I 0.08 ng/mL (0.0-0.30)
[2016-12-29 23:57] VITALS: BP 90/61
[2016-12-30] MEDS ORDERED: SENNA8.6 MG PO (11:58)
[2016-12-30] MEDS ORDERED: BISACODYL5 MG PO (11:59)
[2016-12-30] MEDS ORDERED: ACETAMINOPHEN500 M9 PO (12:00)
[2016-12-30] MEDS ORDERED: NOVOLOG 10100 UNITS/ SC (12:02)
[2016-12-30] MEDS ORDERED: MIDODRINE HCL10 MG PO (15:07)
[2016-12-30] MEDS ORDERED: METOPROLOL TART25 MG PO (15:07)
[2016-12-30] MEDS ORDERED: ENTRESTO 24 MG1 EACH PO (15:10)
[2016-12-30] MEDS ORDERED: WARFARIN SODIUM1 MG PO (15:11)
[2016-12-30] MEDS ORDERED: SPIRIVA1 INHALATI IH (15:13)
[2016-12-30] MEDS ORDERED: ADVAIR HFA120 INHALA IH (15:13)
== END 2016-12-29 23:59 ==
LOC: EME 12:59
PROVIDERS: Emergency Medicine
PROC: 05HN33Z Insertion of Infusion Device into Left Internal Jugular Vein, Percutaneous Approach (ICD-10-PCS; principal; 2016-12-29)
DX: I95.9 Hypotension, unspecified (principal); R41.82 Altered mental status, unspecified; I99.8 Other disorder of circulatory system; I13.2 Hypertensive heart and chronic kidney disease with heart failure and with stage 5 chronic kidney disease, or end stage renal disease; E11.22 Type 2 diabetes mellitus with diabetic chronic kidney disease; N18.6 End stage renal disease; I50.9 Heart failure, unspecified; Z99.2 Dependence on renal dialysis; Z79.84 Long term (current) use of oral hypoglycemic drugs; E78.5 Hyperlipidemia, unspecified; Z95.1 Presence of aortocoronary bypass graft
CPT/HCPCS: 71010; 80048; 83605; 83880; 84484; 85025; 87040; 93005; C1752; J3370; J7030

== ENCOUNTER 2016-12-30 11:10 | Inpatient (IN) | payer OTHER, MEDICARE ==
[~2016-12-30] VITALS: Ht 172.7 cm; Wt 109.9 kg
[2016-12-30] VITALS (9 sets, daily range): BP systolic 80–121; BP diastolic 43–65
[2016-12-30 11:43] LABS: BASE EXCESS 1.4 mEq/L (-3 to +3); BICARBONATE 30.4 mEq/L (22-26); CARBOXY HGB 2.8 % (0-5); METHEMOGLOBIN 0.9 % (0-1.5); PCO2 76 mm Hg (35-45); PO2 131 mm Hg (80-100); SITE RR
[2016-12-30 11:44] LABS: COMMENTS - BLOOD GASES C+A-N/A; DEVICE NASAL CANNULA; O2 FLOW 4 L/MIN; TOTAL RESP RATE 16 resp/min; pH 7.21 (7.35-7.45)
[2016-12-30] MEDS ORDERED: SENNA8.6 MG PO (11:58)
[2016-12-30] MEDS ORDERED: BISACODYL5 MG PO (11:59)
[2016-12-30] MEDS ORDERED: ACETAMINOPHEN500 M9 PO (12:00)
[2016-12-30] MEDS ORDERED: NOVOLOG 10100 UNITS/ SC (12:02)
[2016-12-30 12:06] LABS: EOSINOPHIL (%) 3.9 % (0-5); EOSINOPHIL COUNT 0.6 K/uL (0-0.3); HEMATOCRIT 30.7 % (38.0-50.0); IMMATURE GRANULOCYTE (%) 1.5 % (0.0-0.7); IMMATURE GRANULOCYTE COUNT 0.2 K/uL; INSTRUMENT ABS NEUTROPHIL CT 11.5 K/uL; LYMPHOCYTE COUNT 0.5 K/uL (1.0-2.8); MEAN PLAT.VOLUME 11.4 uM^3 (9.0-12.4); MONOCYTE (%) 11.2 % (3-12); MONOCYTE COUNT 1.6 K/uL (0-0.8); NEUTROPHIL COUNT 11.5 K/uL (1.8-6.4); PLATELET COUNT 129 K/uL (156-360); RBC DIS.WIDTH-CV 21.9 % (11.8-14.6); RBC DIS.WIDTH-SD 74.2 % (39-53); WHITE BLOOD COUNT 14.4 K/uL (4.1-10.2)
[2016-12-30 12:14] LABS: INTER. NORMALIZED RATIO 2.4
[2016-12-30 12:15] LABS: PROTHROMBIN TIME 27.4 SEC (10.2-12.9)
[2016-12-30 12:17] LABS: CHLORIDE 102 mEq/L (99-109); POTASSIUM 4.9 mEq/L (3.7-5.4); SODIUM 140 mEq/L (136-147)
[2016-12-30 12:20] LABS: ANION GAP 10 MEQ/L (2-14)
[2016-12-30 12:21] LABS: TOTAL BILIRUBIN 0.4 mg/dL (0.0-1.0)
[2016-12-30 12:22] LABS: ALKALINE PHOSPHATASE 76 IU/L (3-129); GLUCOSE 221 mg/dL (70-99)
[2016-12-30 12:23] LABS: GFR ESTIMATE (CALCULATED) 14 mL/min/
[2016-12-30 12:24] LABS: UREA NITROGEN (BUN) 74 mg/dL (9-23)
[2016-12-30 12:59] LABS: TROP-I INTERPRETATION NEGATIVE; TROPONIN-I 0.06 ng/mL (0.0-0.30)
[2016-12-30 13:25] LABS: DIGOXIN < 0.3 ng/mL (0.8-2.0)
[2016-12-30] MEDS ORDERED: MIDODRINE HCL10 MG PO (15:07)
[2016-12-30] MEDS ORDERED: METOPROLOL TART25 MG PO (15:07)
[2016-12-30] MEDS ORDERED: ENTRESTO 24 MG1 EACH PO (15:10)
[2016-12-30] MEDS ORDERED: WARFARIN SODIUM1 MG PO (15:11)
[2016-12-30] MEDS ORDERED: ADVAIR HFA120 INHALA IH (15:13)
[2016-12-30] MEDS ORDERED: SPIRIVA1 INHALATI IH (15:13)
[2016-12-30 15:29] LABS: POINT-OF-CARE METER ID UU13113731
[2016-12-30 15:59] LABS: BASE EXCESS 2.8 mEq/L (-3 to +3); BICARBONATE 29.5 mEq/L (22-26); CARBOXY HGB 2.7 % (0-5); COMMENTS - BLOOD GASES A+C+; DEVICE PB 840 NIPPV; FI02 25 %; METHEMOGLOBIN 1.7 % (0-1.5); MODE SPONT; PCO2 56 mm Hg (35-45); PEEP 5 CM/H20; PO2 73 mm Hg (80-100); PRES. SUPPORT 12 CM/H2O; SITE RR; TOTAL RESP RATE 14 resp/min; pH 7.33 (7.35-7.45)
[2016-12-30 16:11] LABS: ADD MIUA? YES; BILIRUBIN NEGATIVE; BLOOD MODERATE; COLOR YELLOW ((YELLOW)); GLUCOSE (STRIP) NEGATIVE; KETONES NEGATIVE; LEUKOCYTES TRACE; NITRITE NEGATIVE; PROTEIN (STRIP) 30; SPECIFIC GRAVITY 1.012 (1.000-1.030); UROBILINOGEN 0.2 MG/DL (0.2-1.0)
[2016-12-30 16:20] LABS: METH RESISTANT S AUREUS PCR NEGATIVE (NEGATIVE); PROBE CHECK PASS; SPECIMEN PROCESSING CONTROL PASS
[2016-12-30 16:39] LABS: CASTS PRESENT /LPF; EPITHELIAL CELLS NONE SEEN /HPF; MUCUS NONE SEEN /LPF
[2016-12-30 16:40] LABS: COARSE GRANULAR CASTS 0-5 /LPF
[2016-12-30 16:41] LABS: AMORPHOUS URATES CRYSTALS 4+; BACTERIA NONE SEEN /HPF; CRYSTALS PRESENT; UCUL ADDED? NO; WHITE BLOOD CELLS 0-5 /HPF (0-5)
[2016-12-30 21:53] LABS: POINT-OF-CARE METER ID UU14208751; POINT-OF-CARE USER ID RADDRS44
[2016-12-31] VITALS (14 sets, daily range): BP systolic 98–128; BP diastolic 54–73
[2016-12-31 07:02] LABS: HEMATOCRIT 28.4 % (38.0-50.0); MCH 27.1 PG (29.0-34.0); MCHC 30.6 G/DL (30.0-36.0); RBC DIS.WIDTH-CV 21.4 % (11.8-14.6); RBC DIS.WIDTH-SD 68.7 % (39-53); RED BLOOD COUNT 3.21 M/uL (4.00-5.50)
[2016-12-31 07:05] LABS: MCV 88.5 FL (86-99)
[2016-12-31 07:21] LABS: ANION GAP 12 MEQ/L (2-14); CHLORIDE 103 MEQ/L (99-109); GLUCOSE 198 mg/dL (70-99); POTASSIUM 5.1 MEQ/L (3.7-5.4); SAMPLE HEMOLYSIS CHECK 0; SAMPLE ICTERIC CHECK 0; SAMPLE LIPEMIA CHECK 0; SODIUM 142 MEQ/L (136-147); UREA NITROGEN (BUN) 57 mg/dL (9-23)
[2016-12-31 07:22] LABS: GFR ESTIMATE (CALCULATED) 21 mL/min/
[2016-12-31 07:41] LABS: PLAT.SUFFICIENCY DECREASED; PLATELET COUNT UNABLE TO REPORT K/uL (156-360)
[2016-12-31 09:00] LABS: INTER. NORMALIZED RATIO 2.9; PROTHROMBIN TIME 33.2 SEC (10.2-12.9)
[2016-12-31 18:05] LABS: POINT-OF-CARE METER ID UU14208751
[2016-12-31 22:31] LABS: POINT-OF-CARE METER ID UU14208751; POINT-OF-CARE USER ID RADDRS44
[2017-01-01] VITALS (11 sets, daily range): BP systolic 94–145; BP diastolic 57–73
[2017-01-01 08:52] LABS: EOSINOPHIL (%) 0 % (0-5); HEMATOCRIT 27.1 % (38.0-50.0); IMMATURE GRANULOCYTE (%) 1.2 % (0.0-0.7); IMMATURE GRANULOCYTE COUNT 0.1 K/uL; INSTRUMENT ABS NEUTROPHIL CT 10.7 K/uL; LYMPHOCYTE COUNT 0.3 K/uL (1.0-2.8); MCH 28.6 PG (29.0-34.0); MCV 92.2 FL (86-99); MEAN PLAT.VOLUME 12.6 uM^3 (9.0-12.4); MONOCYTE (%) 4.4 % (3-12); MONOCYTE COUNT 0.5 K/uL (0-0.8); NEUTROPHIL (%) 91.5 % (45-76); NEUTROPHIL COUNT 10.7 K/uL (1.8-6.4); RBC DIS.WIDTH-CV 21.7 % (11.8-14.6); RBC DIS.WIDTH-SD 71.9 % (39-53); RED BLOOD COUNT 2.94 M/uL (4.00-5.50); WHITE BLOOD COUNT 11.6 K/uL (4.1-10.2)
[2017-01-01 08:55] LABS: PLATELET COUNT 155 K/uL (156-360)
[2017-01-01 09:10] LABS: ANION GAP 10 MEQ/L (2-14); CHLORIDE 100 MEQ/L (99-109); POTASSIUM 4.9 MEQ/L (3.7-5.4); SAMPLE HEMOLYSIS CHECK 0; SAMPLE ICTERIC CHECK 0; SAMPLE LIPEMIA CHECK 0; SODIUM 138 MEQ/L (136-147)
[2017-01-01 09:16] LABS: GFR ESTIMATE (CALCULATED) 15 mL/min/; GLUCOSE 211 mg/dL (70-99); UREA NITROGEN (BUN) 85 mg/dL (9-23)
[2017-01-01 09:17] LABS: POINT-OF-CARE METER ID UU14162636
[2017-01-01 09:53] LABS: INTER. NORMALIZED RATIO 2.4; PROTHROMBIN TIME 26.8 SEC (10.2-12.9)
[2017-01-01 12:41] LABS: POINT-OF-CARE METER ID UU14162636
[2017-01-01 21:37] LABS: POINT-OF-CARE METER ID UU13113725
[2017-01-02 04:42] VITALS: BP 117/82
[2017-01-02 05:38] LABS: POINT-OF-CARE METER ID UU13113725
[2017-01-02 06:01] LABS: HEMATOCRIT 27.8 % (38.0-50.0); MCH 28.1 PG (29.0-34.0); MCHC 30.6 G/DL (30.0-36.0); MCV 92.1 FL (86-99); MEAN PLAT.VOLUME 11.5 uM^3 (9.0-12.4); PLATELET COUNT 134 K/uL (156-360); RBC DIS.WIDTH-CV 21.4 % (11.8-14.6); RED BLOOD COUNT 3.02 M/uL (4.00-5.50); WHITE BLOOD COUNT 11.7 K/uL (4.1-10.2)
[2017-01-02 06:33] LABS: ALKALINE PHOSPHATASE 66 IU/L (3-129); ANION GAP 10 MEQ/L (2-14); CHLORIDE 102 MEQ/L (99-109); GFR ESTIMATE (CALCULATED) 19 mL/min/; GLUCOSE 231 mg/dL (70-99); POTASSIUM 4.8 MEQ/L (3.7-5.4); SAMPLE HEMOLYSIS CHECK 0; SAMPLE ICTERIC CHECK 0; SAMPLE LIPEMIA CHECK 0; SODIUM 141 MEQ/L (136-147); TOTAL BILIRUBIN 0.5 MG/DL (0.0-1.0); UREA NITROGEN (BUN) 59 mg/dL (9-23)
[2017-01-02 06:40] LABS: INTER. NORMALIZED RATIO 1.9; PROTHROMBIN TIME 21.6 SEC (10.2-12.9)
[2017-01-02 07:34] VITALS: BP 131/61
[2017-01-02 16:01] VITALS: BP 142/68
[2017-01-02 20:23] VITALS: BP 130/82
[2017-01-02 21:40] LABS: POINT-OF-CARE METER ID UU13113725
[2017-01-03] VITALS (7 sets, daily range): BP systolic 112–139; BP diastolic 58–87
[2017-01-03 06:11] LABS: MCH 27.9 PG (29.0-34.0); MCV 92.9 FL (86-99); MEAN PLAT.VOLUME 10.8 uM^3 (9.0-12.4); NRBC (%) 0.2 /100 WBC (0-0); PLATELET COUNT 104 K/uL (156-360); RBC DIS.WIDTH-CV 21.2 % (11.8-14.6); RBC DIS.WIDTH-SD 71.4 % (39-53); RED BLOOD COUNT 3.12 M/uL (4.00-5.50); WHITE BLOOD COUNT 13.1 K/uL (4.1-10.2)
[2017-01-03 06:37] LABS: ANION GAP 10 MEQ/L (2-14); CHLORIDE 101 MEQ/L (99-109); GFR ESTIMATE (CALCULATED) 14 mL/min/; GLUCOSE 310 mg/dL (70-99); SAMPLE HEMOLYSIS CHECK 0; SAMPLE ICTERIC CHECK 0; SAMPLE LIPEMIA CHECK 0; SODIUM 139 MEQ/L (136-147); UREA NITROGEN (BUN) 84 mg/dL (9-23)
[2017-01-03 06:45] LABS: INTER. NORMALIZED RATIO 1.7; PROTHROMBIN TIME 18.5 SEC (10.2-12.9)
[2017-01-03 11:49] LABS: POINT-OF-CARE METER ID UU13113725
[2017-01-03 15:33] LABS: POINT-OF-CARE METER ID UU13113725
[2017-01-04 05:52] LABS: INTER. NORMALIZED RATIO 1.5; PROTHROMBIN TIME 16.9 SEC (10.2-12.9)
[2017-01-04 06:10] LABS: ANION GAP 12 MEQ/L (2-14); CHLORIDE 100 MEQ/L (99-109); GFR ESTIMATE (CALCULATED) 16 mL/min/; GLUCOSE 235 mg/dL (70-99); MAGNESIUM 1.9 mg/dl (1.3-2.7); SAMPLE HEMOLYSIS CHECK 0; SAMPLE ICTERIC CHECK 0; SAMPLE LIPEMIA CHECK 0; SODIUM 140 MEQ/L (136-147); UREA NITROGEN (BUN) 61 mg/dL (9-23)
[2017-01-04 06:17] LABS: POINT-OF-CARE METER ID UU13113725
[2017-01-04 08:33] VITALS: BP 163/77
[2017-01-04 10:24] LABS: EOSINOPHIL (%) 0 % (0-5); HEMATOCRIT 28.9 % (38.0-50.0); IMMATURE GRANULOCYTE (%) 0.6 % (0.0-0.7); IMMATURE GRANULOCYTE COUNT 0.1 K/uL; INSTRUMENT ABS NEUTROPHIL CT 11.5 K/uL; LYMPHOCYTE COUNT 0.3 K/uL (1.0-2.8); MCH 27.2 PG (29.0-34.0); MCHC 29.4 G/DL (30.0-36.0); MCV 92.3 FL (86-99); MEAN PLAT.VOLUME 10.5 uM^3 (9.0-12.4); MONOCYTE (%) 4.3 % (3-12); MONOCYTE COUNT 0.5 K/uL (0-0.8); NEUTROPHIL (%) 92.6 % (45-76); NEUTROPHIL COUNT 11.5 K/uL (1.8-6.4); PLATELET COUNT 78 K/uL (156-360); RBC DIS.WIDTH-CV 20.4 % (11.8-14.6); RBC DIS.WIDTH-SD 69.6 % (39-53); RED BLOOD COUNT 3.13 M/uL (4.00-5.50); WHITE BLOOD COUNT 12.5 K/uL (4.1-10.2)
[2017-01-04 10:37] LABS: ANION GAP 9 MEQ/L (2-14); CHLORIDE 101 MEQ/L (99-109); GFR ESTIMATE (CALCULATED) 16 mL/min/; GLUCOSE 269 mg/dL (70-99); POTASSIUM 5.1 MEQ/L (3.7-5.4); SAMPLE HEMOLYSIS CHECK 0; SAMPLE ICTERIC CHECK 0; SAMPLE LIPEMIA CHECK 0; SODIUM 139 MEQ/L (136-147); UREA NITROGEN (BUN) 62 mg/dL (9-23)
[2017-01-04 12:45] VITALS: BP 154/80
[2017-01-04 16:22] VITALS: BP 178/85
[2017-01-04 20:37] VITALS: BP 116/68
[2017-01-04 21:25] LABS: POINT-OF-CARE METER ID UU13113725
[2017-01-05 00:03] VITALS: BP 134/62
[2017-01-05 05:19] VITALS: BP 122/56
[2017-01-05 05:38] LABS: POINT-OF-CARE METER ID UU13113725
[2017-01-05 08:13] VITALS: BP 125/57
[2017-01-05 09:07] LABS: INTER. NORMALIZED RATIO 1.6; PROTHROMBIN TIME 18.3 SEC (10.2-12.9)
[2017-01-05 09:27] LABS: ANION GAP 12 MEQ/L (2-14); CHLORIDE 100 MEQ/L (99-109); GFR ESTIMATE (CALCULATED) 12 mL/min/; GLUCOSE 332 mg/dL (70-99); MAGNESIUM 1.9 mg/dl (1.3-2.7); POTASSIUM 5.7 MEQ/L (3.7-5.4); SAMPLE HEMOLYSIS CHECK 0; SAMPLE ICTERIC CHECK 0; SAMPLE LIPEMIA CHECK 0; SODIUM 139 MEQ/L (136-147); UREA NITROGEN (BUN) 89 mg/dL (9-23)
[2017-01-05 09:33] LABS: HEMATOCRIT 29.4 % (38.0-50.0); MCH 28.1 PG (29.0-34.0); MCHC 30.3 G/DL (30.0-36.0); MCV 92.7 FL (86-99); PLATELET COUNT 59 K/uL (156-360); RBC DIS.WIDTH-CV 20.5 % (11.8-14.6); RED BLOOD COUNT 3.17 M/uL (4.00-5.50)
[2017-01-05 11:29] LABS: POINT-OF-CARE METER ID UU13113725
[2017-01-05 12:34] VITALS: BP 116/59
[2017-01-05 15:37] LABS: POINT-OF-CARE METER ID UU13113725
[2017-01-05 16:27] VITALS: BP 98/57
[2017-01-06] VITALS (7 sets, daily range): BP systolic 113–163; BP diastolic 56–80
[2017-01-06 06:50] LABS: INTER. NORMALIZED RATIO 1.8; PROTHROMBIN TIME 19.7 SEC (10.2-12.9)
[2017-01-06 07:13] LABS: ANION GAP 12 MEQ/L (2-14); CHLORIDE 100 MEQ/L (99-109); GFR ESTIMATE (CALCULATED) 10 mL/min/; GLUCOSE 251 mg/dL (70-99); POTASSIUM 6.2 MEQ/L (3.7-5.4); SAMPLE HEMOLYSIS CHECK 0; SAMPLE ICTERIC CHECK 0; SAMPLE LIPEMIA CHECK 0; SODIUM 138 MEQ/L (136-147); UREA NITROGEN (BUN) 112 mg/dL (9-23)
[2017-01-06 07:44] LABS: HEMATOCRIT 30.8 % (38.0-50.0); MCH 28.4 PG (29.0-34.0); MCHC 30.8 G/DL (30.0-36.0); MCV 92.2 FL (86-99); RBC DIS.WIDTH-SD 68.7 % (39-53); RED BLOOD COUNT 3.34 M/uL (4.00-5.50); WHITE BLOOD COUNT 11.5 K/uL (4.1-10.2)
[2017-01-06 07:51] LABS: PLAT.SUFFICIENCY DECREASED; PLATELET COUNT 61 K/uL (156-360)
[2017-01-06 16:33] LABS: POINT-OF-CARE METER ID UU13113725
[2017-01-07 02:35] VITALS: BP 109/61
[2017-01-07 06:51] LABS: PROTHROMBIN TIME 23.1 SEC (10.2-12.9)
[2017-01-07 07:20] VITALS: BP 122/62
[2017-01-07 10:57] VITALS: BP 110/53
[2017-01-07 11:29] LABS: POINT-OF-CARE METER ID UU13113725
[2017-01-07 15:28] VITALS: BP 129/65
[2017-01-07 16:00] LABS: POINT-OF-CARE METER ID UU13113725
[2017-01-07 19:38] VITALS: BP 134/64
[2017-01-07 21:06] LABS: POINT-OF-CARE METER ID UU13113725
[2017-01-07 22:45] VITALS: BP 143/63
[2017-01-08 02:40] VITALS: BP 132/63
[2017-01-08 05:47] LABS: POINT-OF-CARE METER ID UU13113725
[2017-01-08 06:28] LABS: HEMATOCRIT 29.8 % (38.0-50.0); MCH 26.4 PG (29.0-34.0); MCHC 29.9 G/DL (30.0-36.0); MCV 88.4 FL (86-99); PLATELET COUNT 70 K/uL (156-360); RBC DIS.WIDTH-CV 19.9 % (11.8-14.6); RBC DIS.WIDTH-SD 65.1 % (39-53); RED BLOOD COUNT 3.37 M/uL (4.00-5.50); WHITE BLOOD COUNT 9.7 K/uL (4.1-10.2)
[2017-01-08 06:47] LABS: PROTHROMBIN TIME 22.6 SEC (10.2-12.9)
[2017-01-08 07:01] LABS: ANION GAP 11 MEQ/L (2-14); CHLORIDE 101 MEQ/L (99-109); GFR ESTIMATE (CALCULATED) 9 mL/min/; GLUCOSE 204 mg/dL (70-99); POTASSIUM 5.9 MEQ/L (3.7-5.4); SAMPLE HEMOLYSIS CHECK 0; SAMPLE ICTERIC CHECK 0; SAMPLE LIPEMIA CHECK 0; SODIUM 138 MEQ/L (136-147)
[2017-01-08 07:04] LABS: UREA NITROGEN (BUN) 113 mg/dL (9-23)
[2017-01-08 07:39] VITALS: BP 137/65
[2017-01-08 11:58] VITALS: BP 116/56
[2017-01-08 12:04] LABS: POINT-OF-CARE METER ID UU13113725
[2017-01-08 16:15] VITALS: BP 124/63
[2017-01-08 16:47] LABS: POINT-OF-CARE METER ID UU13113725
[2017-01-08 20:12] VITALS: BP 169/64
[2017-01-08 21:08] LABS: POINT-OF-CARE METER ID UU13113725
[2017-01-08 22:52] VITALS: BP 131/63
[2017-01-09] VITALS (7 sets, daily range): BP systolic 129–149; BP diastolic 61–70
[2017-01-09 06:23] LABS: POINT-OF-CARE METER ID UU13113725
[2017-01-09 06:27] LABS: INTER. NORMALIZED RATIO 2.3; PROTHROMBIN TIME 26.7 SEC (10.2-12.9)
[2017-01-09 11:30] LABS: POINT-OF-CARE METER ID UU13113725
[2017-01-09] MEDS ORDERED: CORDARONE200 MG PO (14:45)
[2017-01-09] MEDS ORDERED: DIGOXIN125 MCG PO (14:45)
[2017-01-09] MEDS ORDERED: ARANESP60 MCG/0.3 SC (14:45)
[2017-01-09] MEDS ORDERED: RENVELA800 MG PO (14:46)
[2017-01-09] MEDS ORDERED: NEPHRO-VITE,1 TABLET PO (14:47)
[2017-01-09] MEDS ORDERED: PREDNISONE10 MG PO (14:47)
[2017-01-09 16:40] LABS: POINT-OF-CARE METER ID UU13113725
[2017-01-09 20:45] LABS: POINT-OF-CARE METER ID UU13113725
[2017-01-10 02:45] VITALS: BP 144/66
[2017-01-10 06:08] LABS: POINT-OF-CARE METER ID UU13113725
[2017-01-10 06:46] LABS: INTER. NORMALIZED RATIO 2.2; PROTHROMBIN TIME 24.4 SEC (10.2-12.9)
[2017-01-10 08:03] VITALS: BP 141/64
[2017-01-10 08:15] LABS: EOSINOPHIL (%) 0.7 % (0-5); EOSINOPHIL COUNT 0.1 K/uL (0-0.3); HEMATOCRIT 32.7 % (38.0-50.0); IMMATURE GRANULOCYTE (%) 0.8 % (0.0-0.7); IMMATURE GRANULOCYTE COUNT 0.1 K/uL; INSTRUMENT ABS NEUTROPHIL CT 12.7 K/uL; LYMPHOCYTE COUNT 0.4 K/uL (1.0-2.8); MCH 27.9 PG (29.0-34.0); MCHC 31.2 G/DL (30.0-36.0); MCV 89.6 FL (86-99); MONOCYTE (%) 5.6 % (3-12); MONOCYTE COUNT 0.8 K/uL (0-0.8); NEUTROPHIL (%) 89.7 % (45-76); NEUTROPHIL COUNT 12.7 K/uL (1.8-6.4); RBC DIS.WIDTH-CV 20.1 % (11.8-14.6); RBC DIS.WIDTH-SD 66.7 % (39-53); RED BLOOD COUNT 3.65 M/uL (4.00-5.50); WHITE BLOOD COUNT 14.2 K/uL (4.1-10.2)
[2017-01-10 08:25] LABS: ANION GAP 11 MEQ/L (2-14); CHLORIDE 101 MEQ/L (99-109); GFR ESTIMATE (CALCULATED) 9 mL/min/; GLUCOSE 221 mg/dL (70-99); POTASSIUM 5.5 MEQ/L (3.7-5.4); SAMPLE HEMOLYSIS CHECK 0; SAMPLE ICTERIC CHECK 0; SAMPLE LIPEMIA CHECK 0; SODIUM 138 MEQ/L (136-147); UREA NITROGEN (BUN) 105 mg/dL (9-23)
[2017-01-10 08:51] LABS: PLAT.SUFFICIENCY DECREASED
[2017-01-10 11:32] VITALS: BP 141/64
[2017-01-10 11:47] LABS: POINT-OF-CARE METER ID UU13113725
[2017-01-10 12:03] LABS: PLATELET COUNT 107 K/uL (156-360)
[2017-01-10 15:26] LABS: POINT-OF-CARE METER ID UU13113725
[2017-01-10 15:55] VITALS: BP 125/56
== END 2017-01-10 17:02 | DRG 189 ==
LOC: EME → EDBD 11:10 → 4WEST 12:37 → 5EAST 12:37 → EDOF 12:37 → ENRESERV 12:38 → CANRESERV 12:38 → ENRESERV 13:02 → EDOF 13:36 → 4WEST 14:33 → ENRESERV 01-01 10:58 → 5EAST 01-01 15:38 → ENPENDDIS 01-10 → 5EAST 01-10 17:02
PROVIDERS: Emergency Medicine; Family Medicine; Internal Medicine; Internal Medicine Critical Care Medicine; Internal Medicine Nephrology
PROC: 5A09357 Assistance with Respiratory Ventilation, Less than 24 Consecutive Hours, Continuous Positive Airway Pressure (ICD-10-PCS; principal; 2016-12-30)
PROC: 5A1D60Z (ICD-10-PCS; principal; 2016-12-30)
DX: J96.21 Acute and chronic respiratory failure with hypoxia (principal); R57.0 Cardiogenic shock; J44.0 Chronic obstructive pulmonary disease with (acute) lower respiratory infection; I50.23 Acute on chronic systolic (congestive) heart failure; G93.41 Metabolic encephalopathy; J96.22 Acute and chronic respiratory failure with hypercapnia; I27.2 Other secondary pulmonary hypertension; D50.9 Iron deficiency anemia, unspecified; I13.2 Hypertensive heart and chronic kidney disease with heart failure and with stage 5 chronic kidney disease, or end stage renal disease; I07.1 Rheumatic tricuspid insufficiency; E11.22 Type 2 diabetes mellitus with diabetic chronic kidney disease; E11.21 Type 2 diabetes mellitus with diabetic nephropathy; E87.2 Acidosis; D69.6 Thrombocytopenia, unspecified; E78.5 Hyperlipidemia, unspecified; E87.5 Hyperkalemia; G47.33 Obstructive sleep apnea (adult) (pediatric); G89.29 Other chronic pain; N18.6 End stage renal disease; D63.8 Anemia in other chronic diseases classified elsewhere; J18.9 Pneumonia, unspecified organism; N17.9 Acute kidney failure, unspecified; L03.115 Cellulitis of right lower limb; L03.116 Cellulitis of left lower limb; Z87.891 Personal history of nicotine dependence; Z95.1 Presence of aortocoronary bypass graft; I25.5 Ischemic cardiomyopathy; I25.10 Atherosclerotic heart disease of native coronary artery without angina pectoris; M19.90 Unspecified osteoarthritis, unspecified site; I87.2 Venous insufficiency (chronic) (peripheral); Z99.2 Dependence on renal dialysis; E66.9 Obesity, unspecified; Z99.81 Dependence on supplemental oxygen; J44.1 Chronic obstructive pulmonary disease with (acute) exacerbation; I47.2 Ventricular tachycardia; Z68.36 Body mass index [BMI] 36.0-36.9, adult; Z79.4 Long term (current) use of insulin; R18.8 Other ascites
CPT/HCPCS: 36600; 71010; 71020; 80048; 80048 91; 80053; 80069; 80162; 81003; 82803; 82948; 83605; 83735; 83880; 84100; 84484; 85025; 85027; 85610; 86850; 86900; 86901; 86920; 87040; 87081; 87641; 93005; 94002; 94010; 94640; 94640 76; 94760; 94799; 97530 GP; 99281; 99285; C1752; J0692; J0881; J1160; J1644; J1720; J1815; J1940; J2930; J3370; J7030; J7050; J7512; P9047

== ENCOUNTER 2017-01-24 15:09 | Inpatient (IN) | payer OTHER, MEDICARE ==
[~2017-01-24] VITALS: Ht 170.2 cm; Wt 101.0 kg
[~2017-01-24 15:09] MED LIST changes: -AMIODARONE HCL200 MG PO; -BREO ELLIPTA I1 EACH IH; -COUMADIN2.5 MG PO; -DIGOX125 MCG PO; -DULCOLAX10 MG PR; -FLEET ENEMA-AD118 ML PR; -GLIPIZIDE5 MG PO; -PHILLIPS'400 MG/5 M PO
[2017-01-24 15:24] LABS: BASE EXCESS 7.9 mEq/L (-3 to +3); CARBOXY HGB 2.6 % (0-5); METHEMOGLOBIN 1.1 % (0-1.5)
[2017-01-24 15:25] LABS: BICARBONATE 38.8 mEq/L (22-26); COMMENTS - BLOOD GASES A+C+; DEVICE NON REBREATHER; FI02 100 %; PCO2 104 mm Hg (35-45); PO2 326 mm Hg (80-100); SITE RR; TOTAL RESP RATE 22 resp/min; pH 7.18 (7.35-7.45)
[2017-01-24 15:26] LABS: CREATININE 3.9 mg/dL (0.6-1.3); POTASSIUM 4.8 mEq/L (3.7-5.4)
[2017-01-24 15:41] LABS: EOSINOPHIL (%) 0.3 % (0-5); HEMATOCRIT 33.7 % (38.0-50.0); IMMATURE GRANULOCYTE (%) 1.4 % (0.0-0.7); IMMATURE GRANULOCYTE COUNT 0.1 K/uL; INSTRUMENT ABS NEUTROPHIL CT 8.5 K/uL; LYMPHOCYTE COUNT 0.4 K/uL (1.0-2.8); MCH 27.1 PG (29.0-34.0); MCHC 29.1 G/DL (30.0-36.0); MCV 93.4 FL (86-99); MEAN PLAT.VOLUME 11.7 uM^3 (9.0-12.4); MONOCYTE (%) 7.8 % (3-12); MONOCYTE COUNT 0.8 K/uL (0-0.8); NEUTROPHIL (%) 85.8 % (45-76); NEUTROPHIL COUNT 8.5 K/uL (1.8-6.4); PLATELET COUNT 128 K/uL (156-360); RBC DIS.WIDTH-CV 18.5 % (11.8-14.6); RBC DIS.WIDTH-SD 63.3 % (39-53); RED BLOOD COUNT 3.61 M/uL (4.00-5.50); WHITE BLOOD COUNT 9.9 K/uL (4.1-10.2)
[2017-01-24 15:48] LABS: INTER. NORMALIZED RATIO 3.3; PROTHROMBIN TIME 38.1 SEC (10.2-12.9)
[2017-01-24 15:51] LABS: PTT 41.7 SEC (25-37)
[2017-01-24 15:53] LABS: CHLORIDE 97 mEq/L (99-109); POTASSIUM 4.8 mEq/L (3.7-5.4); SODIUM 140 mEq/L (136-147)
[2017-01-24 15:54] LABS: MAGNESIUM 1.8 mg/dL (1.3-2.7)
[2017-01-24 15:55] LABS: GLUCOSE 77 mg/dL (70-99)
[2017-01-24 15:57] LABS: ANION GAP 13 MEQ/L (2-14); TOTAL BILIRUBIN 0.4 mg/dL (0.0-1.0)
[2017-01-24 15:59] LABS: ALKALINE PHOSPHATASE 72 IU/L (3-129); GFR ESTIMATE (CALCULATED) 16 mL/min/
[2017-01-24 16:00] LABS: UREA NITROGEN (BUN) 36 mg/dL (9-23)
[2017-01-24] MEDS ORDERED: GLIPIZIDE5 MG PO (16:01)
[2017-01-24 16:02] LABS: CREATINE KINASE 16 IU/L (1-294); TOTAL CK 16 IU/L (1-294)
[2017-01-24 16:03] LABS: TROP-I INTERPRETATION POSITIVE; TROPONIN-I 0.82 ng/mL (0.0-0.30)
[2017-01-24] MEDS ORDERED: DIGOX125 MCG PO (16:03)
[2017-01-24] MEDS ORDERED: AMIODARONE HCL200 MG PO (16:03)
[2017-01-24] MEDS ORDERED: PREDNISONE10 MG PO (16:04)
[2017-01-24] MEDS ORDERED: NEPHRO-VITE,1 TABLET PO (16:05)
[2017-01-24] MEDS ORDERED: BREO ELLIPTA I1 EACH IH (16:06)
[2017-01-24] MEDS ORDERED: COUMADIN2.5 MG PO (16:07)
[2017-01-24] MEDS ORDERED: PHILLIPS'400 MG/5 M PO (16:09)
[2017-01-24] MEDS ORDERED: DULCOLAX10 MG PR (16:09)
[2017-01-24] MEDS ORDERED: FLEET ENEMA-AD118 ML PR (16:10)
[2017-01-24 16:12] LABS: DIGOXIN 3.1 ng/mL (0.8-2.0)
[2017-01-24 23:34] VITALS: BP 118/54
[2017-01-25 04:18] VITALS: BP 138/62
[2017-01-25 05:23] LABS: HEMATOCRIT 31.6 % (38.0-50.0); MCH 28.1 PG (29.0-34.0); MCHC 29.4 G/DL (30.0-36.0); MCV 95.5 FL (86-99); PLATELET COUNT 119 K/uL (156-360); RBC DIS.WIDTH-CV 18.4 % (11.8-14.6); RBC DIS.WIDTH-SD 65.1 % (39-53); RED BLOOD COUNT 3.31 M/uL (4.00-5.50); WHITE BLOOD COUNT 7.7 K/uL (4.1-10.2)
[2017-01-25 05:46] LABS: ANION GAP 7 MEQ/L (2-14); CHLORIDE 97 MEQ/L (99-109); SAMPLE HEMOLYSIS CHECK 0; SAMPLE ICTERIC CHECK 0; SAMPLE LIPEMIA CHECK 0; SODIUM 139 MEQ/L (136-147); UREA NITROGEN (BUN) 50 mg/dL (9-23)
[2017-01-25 05:50] LABS: GFR ESTIMATE (CALCULATED) 13 mL/min/; GLUCOSE 145 mg/dL (70-99); POTASSIUM 5.9 MEQ/L (3.7-5.4)
[2017-01-25 07:14] VITALS: BP 131/98
[2017-01-25 08:18] LABS: DIGOXIN 3.1 ng/mL (0.8-2.0)
[2017-01-25 09:41] LABS: BICARBONATE 38.1 mEq/L (22-26); CARBOXY HGB 2.1 % (0-5); METHEMOGLOBIN 1.4 % (0-1.5)
[2017-01-25 09:42] LABS: O2 FLOW 3 L/MIN; PCO2 85 mm Hg (35-45); PO2 103 mm Hg (80-100); SITE RR; pH 7.26 (7.35-7.45)
[2017-01-25 09:43] LABS: COMMENTS - BLOOD GASES A+C+; DEVICE NC; TOTAL RESP RATE 16 resp/min
[2017-01-25 10:16] LABS: INTER. NORMALIZED RATIO 3.2
[2017-01-25 12:29] VITALS: BP 141/63
[2017-01-25 16:33] VITALS: BP 138/62
[2017-01-25 20:00] VITALS: BP 121/61
[2017-01-25 23:22] LABS: TROP-I INTERPRETATION INDETERMINATE; TROPONIN-I 0.31 ng/mL (0.0-0.30)
[2017-01-25 23:55] VITALS: BP 130/59
[2017-01-26 04:00] VITALS: BP 127/53
[2017-01-26 06:00] LABS: HEMATOCRIT 30.9 % (38.0-50.0); MCH 27.1 PG (29.0-34.0); MCHC 28.5 G/DL (30.0-36.0); MCV 95.1 FL (86-99); MEAN PLAT.VOLUME 11.7 uM^3 (9.0-12.4); PLATELET COUNT 156 K/uL (156-360); RBC DIS.WIDTH-SD 62.5 % (39-53); RED BLOOD COUNT 3.25 M/uL (4.00-5.50); WHITE BLOOD COUNT 7.1 K/uL (4.1-10.2)
[2017-01-26 06:09] LABS: INTER. NORMALIZED RATIO 3.5; PROTHROMBIN TIME 40.6 SEC (10.2-12.9)
[2017-01-26 06:29] LABS: ANION GAP 10 MEQ/L (2-14); CHLORIDE 95 MEQ/L (99-109); GFR ESTIMATE (CALCULATED) 10 mL/min/; GLUCOSE 323 mg/dL (70-99); SAMPLE HEMOLYSIS CHECK 0; SAMPLE ICTERIC CHECK 0; SAMPLE LIPEMIA CHECK 0; SODIUM 138 MEQ/L (136-147); UREA NITROGEN (BUN) 75 mg/dL (9-23)
[2017-01-26 06:30] LABS: POTASSIUM 6.1 MEQ/L (3.7-5.4)
[2017-01-26 07:55] VITALS: BP 130/58
[2017-01-26 08:16] LABS: POINT-OF-CARE METER ID UU13113781
[2017-01-26 12:55] VITALS: BP 110/48
[2017-01-26 13:38] LABS: POINT-OF-CARE METER ID UU13113698
[2017-01-26 13:43] LABS: BICARBONATE 34.6 mEq/L (22-26); CARBOXY HGB 2.3 % (0-5); METHEMOGLOBIN 1.3 % (0-1.5)
[2017-01-26 13:44] LABS: COMMENTS - BLOOD GASES A+C+; DEVICE NC; O2 FLOW 2 L/MIN; PCO2 77 mm Hg (35-45); PO2 61 mm Hg (80-100); SITE RR; TOTAL RESP RATE 22 resp/min; pH 7.26 (7.35-7.45)
[2017-01-26 15:58] VITALS: BP 80/40
[2017-01-26 16:34] LABS: POINT-OF-CARE METER ID UU14174216
[2017-01-26 20:00] VITALS: BP 123/55
[2017-01-26 20:24] LABS: BICARBONATE 34.6 mEq/L (22-26); CARBOXY HGB 2.3 % (0-5); METHEMOGLOBIN 1.4 % (0-1.5); PCO2 77 mm Hg (35-45); PO2 55 mm Hg (80-100)
[2017-01-26 20:25] LABS: COMMENTS - BLOOD GASES A+C+; DEVICE VM; FI02 40 %; O2 FLOW 8 L/MIN; SITE LRA; TOTAL RESP RATE 15 resp/min; pH 7.26 (7.35-7.45)
[2017-01-28 00:25] VITALS: BP 131/69
[2017-02-01 19:40] VITALS: BP 145/78
== END 2017-02-02 09:08 | DRG 189 ==
LOC: EME 15:09 → 4EAST 17:44 → EDOF 17:44 → ENRESERV 20:09 → CANRESERV 20:09 → ENRESERV 20:14 → 5EAST 20:58 → ENRESERV 21:41 → 4EAST 23:28 → ENRESERV 01-26 21:31 → CANRESERV 01-26 21:31 → 4EAST 01-26 21:34 → ENRESERV 01-27 02:50 → 5EAST 01-27 05:30
PROVIDERS: Emergency Medicine; Family Medicine; Internal Medicine; Internal Medicine Pulmonary Disease
PROC: 5A1D00Z (ICD-10-PCS; principal; 2017-01-26)
PROC: 5A09357 Assistance with Respiratory Ventilation, Less than 24 Consecutive Hours, Continuous Positive Airway Pressure (ICD-10-PCS; 2017-01-26)
DX: J96.21 Acute and chronic respiratory failure with hypoxia (principal); N18.6 End stage renal disease; I21.4 Non-ST elevation (NSTEMI) myocardial infarction; I13.2 Hypertensive heart and chronic kidney disease with heart failure and with stage 5 chronic kidney disease, or end stage renal disease; E87.2 Acidosis; N17.9 Acute kidney failure, unspecified; J44.1 Chronic obstructive pulmonary disease with (acute) exacerbation; Z66 Do not resuscitate; Z51.5 Encounter for palliative care; E11.22 Type 2 diabetes mellitus with diabetic chronic kidney disease; J96.22 Acute and chronic respiratory failure with hypercapnia; D63.1 Anemia in chronic kidney disease; E11.21 Type 2 diabetes mellitus with diabetic nephropathy; E78.5 Hyperlipidemia, unspecified; E83.39 Other disorders of phosphorus metabolism; E87.5 Hyperkalemia; G47.33 Obstructive sleep apnea (adult) (pediatric); I36.1 Nonrheumatic tricuspid (valve) insufficiency; I25.10 Atherosclerotic heart disease of native coronary artery without angina pectoris; I49.3 Ventricular premature depolarization; M10.9 Gout, unspecified; E66.9 Obesity, unspecified; I50.9 Heart failure, unspecified; I73.9 Peripheral vascular disease, unspecified; I87.2 Venous insufficiency (chronic) (peripheral); K59.00 Constipation, unspecified; M19.90 Unspecified osteoarthritis, unspecified site; R62.7 Adult failure to thrive; I27.2 Other secondary pulmonary hypertension; I25.5 Ischemic cardiomyopathy; T46.0X5A Adverse effect of cardiac-stimulant glycosides and drugs of similar action, initial encounter; G89.29 Other chronic pain; M54.9 Dorsalgia, unspecified; Z79.01 Long term (current) use of anticoagulants; Z99.2 Dependence on renal dialysis; Z95.1 Presence of aortocoronary bypass graft; Z87.891 Personal history of nicotine dependence; Z79.84 Long term (current) use of oral hypoglycemic drugs; Z68.36 Body mass index [BMI] 36.0-36.9, adult
CPT/HCPCS: 36600; 71010; 80047; 80048; 80053; 80069; 80162; 82550; 82553; 82803; 82948; 83605; 83735; 84484; 85025; 85027; 85610; 85730; 93005; 94002; 94640; 94640 76; 94799; 99202; 99214; 99281; 99285; J0696; J0881; J1162; J1644; J1756; J1815; J2310; J2930; J7050; J7512

== ENCOUNTER → 2017-01-24 | Outpatient (CLI) | payer OTHER, MEDICARE ==
[~2017-01-24] MED LIST changes: +ACETAMINOPHEN500 M9 PO; +ADVAIR HFA120 INHALA IH; +AMIODARONE HCL200 MG PO; +ARANESP60 MCG/0.3 SC; +BISACODYL5 MG PO; +BREO ELLIPTA I1 EACH IH; +CORDARONE200 MG PO; +COUMADIN2.5 MG PO; +DIGOX125 MCG PO; +DIGOXIN125 MCG PO; +DULCOLAX10 MG PR; +FLEET ENEMA-AD118 ML PR; +GLIPIZIDE5 MG PO; +HUMALOG100 UNIT/1 SC; +METOPROLOL TART25 MG PO; +MIDODRINE HCL10 MG PO; +NEPHRO-VITE,1 TABLET PO; +PHILLIPS'400 MG/5 M PO; +PREDNISONE10 MG PO; +RENVELA800 MG PO; +SENNA8.6 MG PO; +SPIRIVA1 INHALATI IH; +WARFARIN SODIUM1 MG PO
== END | disposition home or self-care (01) ==
LOC: AMB 09:00
DX: I12.0 Hypertensive chronic kidney disease with stage 5 chronic kidney disease or end stage renal disease (principal); N18.6 End stage renal disease; Z99.2 Dependence on renal dialysis; E11.22 Type 2 diabetes mellitus with diabetic chronic kidney disease; I73.9 Peripheral vascular disease, unspecified; I25.10 Atherosclerotic heart disease of native coronary artery without angina pectoris; I87.2 Venous insufficiency (chronic) (peripheral); M19.90 Unspecified osteoarthritis, unspecified site; Z82.49 Family history of ischemic heart disease and other diseases of the circulatory system; Z83.3 Family history of diabetes mellitus